=== PATIENT | male | born 1940 | race Caucasian/White ===

== ENCOUNTER → 2023-09-21 10:20 | Outpatient (REF) | payer OTHER, SELFPAY ==
[2023-09-21 17:19] LABS: % Basophils 0.9 % (0-2); % Eosinophils 2.6 % (0-6); % Immature Granulocytes 0.4 % (0-0.5); % Lymphocytes 15.7 % (20.5-51.1); % Monocytes 8.3 % (1.7-9.3); % Neutrophils 72.1 % (42.2-75.2); Absolute Basophils 0.1 10^3/uL (0-0.2); Absolute Eosinophils 0.2 10^3/uL (0-0.7); Absolute Lymphocytes 1.1 10^3/uL (1.2-3.4); Absolute Monocytes 0.6 10^3/uL (0.1-0.6); Absolute Neutrophils 5.1 10^3/uL (1.4-6.5); Hematocrit 52.2 % (39.0-52.0); Hemoglobin 16.3 g/dL (13.0-18.0); Mean Corp Hgb Conc. 31.2 g/dL (33.0-37.0); Mean Corpuscular Hgb 26.9 pg (27.0-31.0); Mean Corpuscular Volume 86.1 fL (80.0-94.0); Mean Platelet Volume 9.1 fL (7.4-10.4); Nucleated Red Blood Cells % 0 % (-); Platelet Count 215 10^3/uL (130-400); Red Blood Cell Count 6.06 10^6/uL (4.70-6.10); Red Cell Dist. Width 16.7 % (11.5-14.5)
[2023-09-21 17:29] LABS: ALT (SGPT) 57 U/L (0-50); AST (SGOT) 34 U/L (17-59); Albumin 4.5 g/dl (3.5-5.0); Alkaline Phosphatase 84 U/L (38-126); Blood Urea Nitrogen 23 mg/dl (9-20); Calcium 9.6 mg/dl (8.4-10.2); Carbon Dioxide 23 mmol/L (22-30); Chloride 103 mmol/L (98-107); Glucose 164 mg/dl (70-99); HDL Cholesterol 56 mg/dl; LDL Cholesterol, Calculated 74 mg/dl; Potassium 4.8 mmol/L (3.5-5.1); Sodium 135 mmol/L (135-145); Total Bilirubin 1.4 mg/dl (0.2-1.3); Total Cholesterol 159 mg/dl (50-199); Total Protein 7.7 g/dl (6.3-8.2); Triglyceride 145 mg/dl (10-149); Very Low Density Lipoprotein 29 mg/dl (0-30); eGFR > 60.00
[2023-09-21 19:51] LABS: PSA, Total - Screen 3.57 ng/ml (0.0-4.0); TSH 3.53 uIU/ml (0.47-4.68)
[2023-09-22 09:22] LABS: Glycohemoglobin (HgbA1c) 7.4 % (4.0-5.6)
== END ==
LOC: CLAB 10:20
PROVIDERS: ATTENDING PHYSICIAN Family Medicine
DX: Z00.00 Encounter for general adult medical examination without abnormal findings (principal); Z13.29 Encounter for screening for other suspected endocrine disorder; E29.1 Testicular hypofunction; Z13.0 Encounter for screening for diseases of the blood and blood-forming organs and certain disorders involving the immune mechanism; I25.10 Atherosclerotic heart disease of native coronary artery without angina pectoris; E11.59 Type 2 diabetes mellitus with other circulatory complications
CPT/HCPCS: 36415; 80053; 80061; 83036; 84403; 84443; 85025; G0103

== ENCOUNTER → 2024-03-15 10:01 | Outpatient (REF) | payer OTHER, SELFPAY ==
[2024-03-15 19:31] LABS: % Basophils 0.7 % (0-2); % Eosinophils 4.7 % (0-6); % Immature Granulocytes 0.4 % (0-0.5); % Lymphocytes 21.5 % (20.5-51.1); % Monocytes 9.7 % (1.7-9.3); Absolute Eosinophils 0.3 10^3/uL (0-0.7); Absolute Lymphocytes 1.2 10^3/uL (1.2-3.4); Absolute Monocytes 0.5 10^3/uL (0.1-0.6); Absolute Neutrophils 3.4 10^3/uL (1.4-6.5); Hematocrit 50.6 % (39.0-52.0); Hemoglobin 15.4 g/dL (13.0-18.0); Mean Corp Hgb Conc. 30.4 g/dL (33.0-37.0); Mean Corpuscular Hgb 26.7 pg (27.0-31.0); Mean Corpuscular Volume 87.7 fL (80.0-94.0); Mean Platelet Volume 9.4 fL (7.4-10.4); Nucleated Red Blood Cells % 0 % (-); Platelet Count 188 10^3/uL (130-400); Red Blood Cell Count 5.77 10^6/uL (4.70-6.10); Red Cell Dist. Width 15.6 % (11.5-14.5); White Blood Cell Count 5.4 10^3/uL (4.8-10.8)
[2024-03-15 19:36] LABS: ALT (SGPT) 45 U/L (0-50); AST (SGOT) 31 U/L (17-59); Albumin 4.3 g/dl (3.5-5.0); Alkaline Phosphatase 81 U/L (38-126); Blood Urea Nitrogen 27 mg/dl (9-20); Calcium 9.3 mg/dl (8.4-10.2); Carbon Dioxide 23 mmol/L (22-30); Chloride 101 mmol/L (98-107); Glucose 136 mg/dl (70-99); HDL Cholesterol 48 mg/dl; LDL Cholesterol, Calculated 67 mg/dl; Potassium 4.8 mmol/L (3.5-5.1); Sodium 137 mmol/L (135-145); Total Bilirubin 1.1 mg/dl (0.2-1.3); Total Cholesterol 140 mg/dl (50-199); Total Protein 7.1 g/dl (6.3-8.2); Triglyceride 129 mg/dl (10-149); Very Low Density Lipoprotein 25 mg/dl (0-30); eGFR > 60.00
[2024-03-16 10:56] LABS: Glycohemoglobin (HgbA1c) 7.3 % (4.0-5.6)
== END ==
LOC: CLAB 10:01
PROVIDERS: ATTENDING PHYSICIAN Family Medicine
DX: E11.69 Type 2 diabetes mellitus with other specified complication (principal); E29.1 Testicular hypofunction; E78.2 Mixed hyperlipidemia; I10 Essential (primary) hypertension
CPT/HCPCS: 36415; 80053; 80061; 83036; 84403; 85025

== ENCOUNTER → 2024-08-09 16:43 | Outpatient (REF) | payer OTHER, SELFPAY ==
[2024-08-09 18:06] LABS: ALT (SGPT) 41 U/L (0-50); AST (SGOT) 25 U/L (17-59); Albumin 4.2 g/dl (3.5-5.0); Alkaline Phosphatase 117 U/L (38-126); Blood Urea Nitrogen 25 mg/dl (9-20); Calcium 9.3 mg/dl (8.4-10.2); Carbon Dioxide 29 mmol/L (22-30); Chloride 97 mmol/L (98-107); Glucose 220 mg/dl (70-99); HDL Cholesterol 40 mg/dl; LDL Cholesterol, Calculated 47 mg/dl; Potassium 5.9 mmol/L (3.5-5.1); Sodium 133 mmol/L (135-145); Total Cholesterol 124 mg/dl (50-199); Total Protein 6.7 g/dl (6.3-8.2); Triglyceride 186 mg/dl (10-149); Very Low Density Lipoprotein 37 mg/dl (0-30); eGFR > 60.00
[2024-08-10 10:00] LABS: Glycohemoglobin (HgbA1c) 9.8 % (4.0-5.6)
== END ==
LOC: CLAB 16:43
PROVIDERS: ATTENDING PHYSICIAN Family Medicine
DX: E11.69 Type 2 diabetes mellitus with other specified complication (principal); E78.2 Mixed hyperlipidemia; E29.1 Testicular hypofunction
CPT/HCPCS: 80053; 80061; 83036; 84403

== ENCOUNTER → 2024-08-11 16:35 | Outpatient (REF) | payer OTHER, SELFPAY ==
[2024-08-11 17:27] LABS: Potassium 4.9 mmol/L (3.5-5.1)
== END ==
LOC: REG 16:35
PROVIDERS: ATTENDING PHYSICIAN Family Medicine
DX: E87.5 Hyperkalemia (principal)
CPT/HCPCS: 36415; 84132

== ENCOUNTER → 2024-11-17 10:58 | Outpatient (REF) | payer OTHER, SELFPAY ==
[2024-11-17 16:53] LABS: ALT (SGPT) 41 U/L (0-50); AST (SGOT) 27 U/L (17-59); Albumin 4.1 g/dl (3.5-5.0); Alkaline Phosphatase 77 U/L (38-126); Blood Urea Nitrogen 20 mg/dl (9-20); Calcium 9.2 mg/dl (8.4-10.2); Carbon Dioxide 22 mmol/L (22-30); Chloride 106 mmol/L (98-107); Glucose 185 mg/dl (70-99); Potassium 4.9 mmol/L (3.5-5.1); Sodium 138 mmol/L (135-145); Total Bilirubin 1.1 mg/dl (0.2-1.3); Total Protein 6.8 g/dl (6.3-8.2); eGFR > 60.00
[2024-11-17 17:24] LABS: PSA, Total - Screen 3.33 ng/ml (0.0-4.0)
[2024-11-18 08:46] LABS: Glycohemoglobin (HgbA1c) 9.6 % (4.0-5.6)
== END ==
LOC: CLAB 10:58
PROVIDERS: ATTENDING PHYSICIAN Family Medicine
DX: E11.65 Type 2 diabetes mellitus with hyperglycemia (principal); E29.1 Testicular hypofunction; N40.1 Benign prostatic hyperplasia with lower urinary tract symptoms; Z01.84 Encounter for antibody response examination
CPT/HCPCS: 36415; 80053; 83036; 86787; G0103

== ENCOUNTER → 2025-03-13 16:11 | Outpatient (REF) | payer OTHER, SELFPAY ==
[2025-03-13 17:42] LABS: ALT (SGPT) 51 U/L (0-50); AST (SGOT) 36 U/L (17-59); Albumin 4.3 g/dl (3.5-5.0); Alkaline Phosphatase 72 U/L (38-126); Blood Urea Nitrogen 17 mg/dl (9-20); Calcium 9.2 mg/dl (8.4-10.2); Carbon Dioxide 27 mmol/L (22-30); Chloride 106 mmol/L (98-107); Glucose 109 mg/dl (70-99); HDL Cholesterol 43 mg/dl; LDL Cholesterol, Calculated 38 mg/dl; Potassium 4.8 mmol/L (3.5-5.1); Sodium 142 mmol/L (135-145); Total Protein 7.1 g/dl (6.3-8.2); Very Low Density Lipoprotein 34 mg/dl (0-30); eGFR > 60.00
[2025-03-14 08:11] LABS: Glycohemoglobin (HgbA1c) 7.2 % (4.0-5.6)
== END ==
LOC: CLAB 16:11
PROVIDERS: ATTENDING PHYSICIAN Family Medicine
DX: E11.65 Type 2 diabetes mellitus with hyperglycemia (principal); E78.2 Mixed hyperlipidemia; E29.1 Testicular hypofunction
CPT/HCPCS: 80053; 80061; 83036; 84403

== ENCOUNTER 2025-04-12 21:36 | Inpatient (IN) | payer OTHER, SELFPAY ==
[2025-04-12] VITALS (11 sets, daily range): BP systolic 97–135; BP diastolic 49–117; BMI 33.5; BMI 34.2
[2025-04-12 17:35] LABS: Hematocrit 33.8 % (39.0-52.0); Hemoglobin 10.9 g/dL (13.0-18.0); Mean Corp Hgb Conc. 32.2 g/dL (33.0-37.0); Mean Corpuscular Volume 83.3 fL (80.0-94.0); Nucleated Red Blood Cells % 0 % (-); Red Cell Dist. Width 14.7 % (11.5-14.5)
[2025-04-12 17:39] LABS: ALT (SGPT) 26 U/L (0-50); AST (SGOT) 19 U/L (17-59); Albumin 4.1 g/dl (3.5-5.0); Alkaline Phosphatase 70 U/L (38-126); Blood Urea Nitrogen 56 mg/dl (9-20); Calcium 9.4 mg/dl (8.4-10.2); Carbon Dioxide 18 mmol/L (22-30); Chloride 95 mmol/L (98-107); Estimated Creatinine Clearance 22 ml/min; Glucose 238 mg/dl (70-99); Potassium 4.7 mmol/L (3.5-5.1); Sodium 127 mmol/L (135-145); Total Protein 7.2 g/dl (6.3-8.2); eGFR 18.27
[2025-04-12 17:43] LABS: Troponin I 0.023 ng/ml
[2025-04-12] MEDS: MORPHINE SULFATE 4 MG IV ×2 (17:43→21:16)
[2025-04-12 17:51] LABS: Magnesium 2.3 mg/dl (1.6-2.3)
--- NOTE | 2025-04-12 18:13 | ED.GENMED ---
History of Present Illness
<Leanne Melendez DO - Last Filed: 04/12/25 21:04>
General
Chief Complaint: Weakness
Time Seen by Provider: 04/12/25 17:09
<Melani Lanier PA-C - Last Filed: 04/13/25 01:02>
General
Source: patient
History of Present Illness
History of Present Illness:
see MDM
Past History
<Leanne Melendez DO - Last Filed: 04/12/25 21:04>
Past History
ED Past Medical History: CAD, COPD, HTN, Hypercholesterolemia and NIDDM; Negative Arrthythmia
ED Past Surgical History: Orthopedic
Social History
Tobacco: Non-smoker
Alcohol: None
Drug: None
Personal:
Living: with family
Employment: Employed
Family History
Family History: Hypertension
Phy Exam
<Melani Lanier PA-C - Last Filed: 04/13/25 01:02>
Physical Exam
Physical Exam:
GENERAL: Alert ,, shaky, dry, anxious, unkept, malordorous
EYE: pupils equal and reactive
NECK: Supple
ENT: o/p clr, mmm. Very dry mouth
CARDIAC: Tachycardic
lung: Clear breath sounds bilaterally, no acute respiratory distress, no wheezes/rales/rhonchi
ABDOMEN: Soft, slight lower abd tenderness, no r/g, no cvat, normal bowel sounds
depends soaked urine
NEUROLOGICAL: Alert and oriented, no focal neuro deficits
SKIN: Warm and dry, skin intact.
MUSCULOSKELETAL: moderate swelling L thigh; no hematoma; very tender mid thigh
distal LLE slightly swollen, a little cool, pulse intact sensatino intact
can wiggle toes
very limited painful ROM of the L hip and L knee;
PSYCH: Normal and appropriate interaction.
Course
<Leanne Al, DO - Last Filed: 04/12/25 21:04>
Orders/Labs/Results
Orders:
Orders
04/12/25 17:08
Electrocardiogram (*1) Urgent
Reason for Study: Chest Pain
Cardiac Monitoring- Treatment ONCE
EKG- Treatment ONCE
04/12/25 17:11
Complete Blood Count/With Diff Urgent
Comprehensive Metabolic Panel Urgent
Creatine Phosphokinase Urgent
Comment: ADD ON
Magnesium Urgent
Comment: ADD ON
Troponin I Urgent
04/12/25 17:30
C DIFF [C difficile Antigen & Toxins] Urgent
GISSELLE Source: Feces/Stool
Specimen Description:
Stool Culture Urgent
GISSELLE Source: Feces/Stool
Specimen Description:
Morphine Sulfate 4 mg IV NOW STA
Femur, Left 2 View [CR Femur - Left Min 2 Vw] Urgent
Comment:
Reason For Exam: L leg swelling , pain, fall
04/12/25 17:31
CR Chest - 2 Views Urgent
Comment:
Reason For Exam: tachypneic
04/12/25 17:33
0.9% Sodium Chloride 1000 ml [Nss] 1,000 ml IV BOLUS
04/12/25 17:35
Add On- LAB Urgent
Tests Added?: magnesium
04/12/25 17:50
Bladder Scan- Treatment ONCE
CR Pelvis - 1 Or 2 Views Urgent
Reason For Exam: left hip pain, fall
04/12/25 17:59
Lactic Acid Urgent
Blood Culture Q30M
GISSELLE Source: Blood/Venous
Specimen Description:
04/12/25 18:05
Add On- LAB Urgent
Tests Added?: cpk
04/12/25 18:16
Blood Culture Q30M
GISSELLE Source: Blood/Venous
Specimen Description:
04/12/25 18:57
0.9% Sodium Chloride 1000 ml [Nss] 1,500 ml IV NOW STA
Piperacillin/Tazo 3.375 Gram [Zosyn] 3.375 gram in 50 ml IV NOW
04/12/25 18:58
CT Abd/pel Without Iv Or Oral Urgent
Comment:
Reason For Exam: diarrhea, ARF, fall, weak
Urinalysis Reflex To Culture Urgent
04/12/25 20:38
Knee Immobilizer Left-Treatmen ONCE
04/12/25 21:10
Morphine Sulfate 4 mg IV NOW STA
04/12/25 21:12
Admit/Transfer Patient As Directed
Co-Sign Provider:
Level of Care: Inpatient admission
Assign to:: IMU- Intermediate Care
Physician / Group: [facility]
Diagnosis: Femur Fracture; CHUY; Ureteral Stones
Reason for Hospitalization: IVFs, IV abx
Expected length of stay greater than two midnights?: Yes
ELOS- Estimated Length of Stay in days: 3
I certify the patient meets the requirements for IP care: Yes
PRN Pain Medication Management As Directed
May give lesser potent ordered pain med per pt: Yes
preference::
Protocol:: Medication orders for pain may be administered in a
manner that supports deferring to patient preference
when the pt is:
- Requesting an ordered lesser potent pain medication.
Least to most potent pain medications are defined
as: acetaminophen < NSAID < tramadol < opioids
(morphine, oxycodone, hydromorphone).
- Requesting a lesser dose of the same medication IF
ORDERED.
- Requesting a less intrusive route of administration
if both routes are prescribed by the provider (PO <
IV).
04/12/25 21:15
Code Status As Directed
Resuscitation Status: Full Code
04/12/25 21:21
Osmolality, Random Urine Routine
Urine Sodium Routine
04/12/25 21:32
Dexamethasone Sod Phosphate [Decadron] 20 mg .ROUTE .STK-MED ONE
Lidocaine HCl/Pf [Xylocaine-Mpf 1% Vial] 50 mg .ROUTE .STK-MED ONE
Ondansetron Injectable [Zofran] 4 mg .ROUTE .STK-MED ONE
Phenylephrine HCl/0.9% NaCl [Ashok-Synephrine] 1,000 mcg .ROUTE .STK-MED ONE
Propofol [Diprivan] 20 ml .ROUTE .STK-MED
Rocuronium [place] [Rocuronium] 50 mg .ROUTE .STK-MED ONE
ePHEDrine SULFATE [Emerphed] 50 mg .ROUTE .STK-MED ONE
04/12/25 21:33
Fentanyl Citrate/Pf [Sublimaze] 100 mcg .ROUTE .STK-MED ONE
04/12/25 22:42
0.9% Sodium Chloride 1000 ml [Nss] 1,000 ml IV 125 mls/hr
Acetaminophen [Tylenol] 1,000 mg PO TID
Dextrose 50%-Water [Dextrose 50% Syringe] 12.5 grams IV [id number] PRN
Glucagon [GlucaGen] 1 mg IM PRN PRN
Montelukast Sodium [Singulair] 10 mg PO HS
Morphine Sulfate 4 mg IV Q4HPRN PRN
Oxycodone [Roxicodone] 2.5 mg PO Q4HPRN PRN
Oxycodone [Roxicodone] 5 mg PO Q4HPRN PRN
04/12/25 22:42
ORTHOPEDIC CONSULT Routine
Consulting Provider: Von Parsons
Was physician already notified: Yes
UROLOGY CONSULT Routine
Consulting Provider: Reji Lowe
Was physician already notified: Yes
Activity As Directed
Activity Level: Bedrest
Bedside Glucose Monitoring As Directed
Frequency: AC&HS
Additional Instructions:: Change to q6h if pt on TPN, tube feeding or not eating
I&O [Intake/ Output] As Directed
Frequency: q12h
Immobilizer [Braces/Immobilizers] As Directed
Type of Brace/Immobilizer: Knee immobilizer
Location for Brace/Immobilizer: Left
Pneumatic Compression Sleeves As Directed
Type: Knee high
Vital Signs As Directed
Frequency: Per unit guidelines
Weight As Directed
Frequency: Daily
Weight Bearing Status As Directed
Weight bearing to: Left lower extremity
Type: Non Wt. bearing
Cpap [RESP] Routine
Patient to use own unit?: No
Set Pressure (cm H2O): 12
Instructions: Titrate to comfort; Patient does not know home settings
DX Deep Vein Thrombosis Video Routine
04/12/25 23:48
BMP [Basic Metabolic Panel] Routine
Lactic Acid Q4H
Comment: repeat q4 hours x 4 or until less than 2 mmol/L
04/13/25 02:00
Lactic Acid Q4H
Comment: repeat q4 hours x 4 or until less than 2 mmol/L
Piperacillin/Tazo 2.25 Gram [Zosyn] 2.25 grams in 50 ml IV Q6H
04/13/25 Breakfast
2000 calorie (17 carb) Diabetic
At Your Request: Limited Participation
Basic Metabolic Panel IN AM
Complete Blood Count/No Diff IN AM
Glycohemoglobin (HgbA1c) IN AM
Lactic Acid Q4H
Comment: repeat q4 hours x 4 or until less than 2 mmol/L
04/13/25 07:30
Insulin Aspart Corrective Mod [Novolog Flexpen-Moderate Resistance] See Protocol SC AC
04/13/25 08:00
Aspirin Low Dose EC [Aspir Low (Enteric Coated)] 81 mg PO DAILY
Metoprolol [Lopressor] 50 mg PO BID
Sitagliptin Phosphate [Januvia] 50 mg PO DAILY
Tamsulosin [Flomax] 0.4 mg PO DAILY
04/13/25 09:00
CR Knee - Left 1 Or 2 Views Urgent
Reason For Exam: requested by ortho
04/13/25 18:00
Atorvastatin [Lipitor] 80 mg PO QPM
Abnormal Lab Results
04/12/25 04/12/25
17:11 17:59
WBC 11.6 H 10^3/uL
(4.8-10.8)
RBC 4.06 L 10^6/uL
(4.70-6.10)
Hgb 10.9 L g/dL
(13.0-18.0)
Hct 33.8 L %
(39.0-52.0)
MCH 26.8 L pg
(27.0-31.0)
MCHC 32.2 L g/dL
(33.0-37.0)
RDW 14.7 H %
(11.5-14.5)
Absolute Neuts (auto) 9.4 H 10^3/uL
(1.4-6.5)
Absolute Lymphs (auto) 0.9 L 10^3/uL
(1.2-3.4)
Absolute Monos (auto) 1.3 H 10^3/uL
(0.1-0.6)
Neutrophils % 80.8 H %
(42.2-75.2)
Lymphocytes % 7.3 L %
(20.5-51.1)
Monocytes % 11.0 H %
(1.7-9.3)
Sodium 127 L mmol/L
(135-145)
Chloride 95 L mmol/L
(98-107)
Carbon Dioxide 18 L mmol/L
(22-30)
BUN 56 H mg/dl
(9-20)
Creatinine 3.2 H mg/dL
(0.7-1.3)
Glucose 238 H mg/dl
(70-99)
Lactic Acid 3.1 H mmol/L
(0.7-2.0)
Creatine Kinase 259 H U/L
(55-170)
04/12/25 17:11
04/12/25 17:11
Vital Signs
Initial and Last Documented VS:
Initial Vital Signs
Resp BP
19 125/107
04/12/25 16:51 04/12/25 16:51
Last Documented Vital Signs
Temp Pulse Resp BP Pulse Ox
37.0 C 108 16 135/81 100
04/12/25 23:54 04/12/25 23:20 04/12/25 23:20 04/12/25 23:20 04/12/25 23:20
<Melani Lanier PA-C - Last Filed: 04/13/25 01:02>
Orders/Labs/Results
Orders:
Orders
04/12/25 17:08
Electrocardiogram (*1) Urgent
Reason for Study: Chest Pain
Cardiac Monitoring- Treatment ONCE
EKG- Treatment ONCE
04/12/25 17:11
Complete Blood Count/With Diff Urgent
Comprehensive Metabolic Panel Urgent
Creatine Phosphokinase Urgent
Comment: ADD ON
Magnesium Urgent
Comment: ADD ON
Troponin I Urgent
04/12/25 17:30
C DIFF [C difficile Antigen & Toxins] Urgent
GISSELLE Source: Feces/Stool
Specimen Description:
Stool Culture Urgent
GISSELLE Source: Feces/Stool
Specimen Description:
Morphine Sulfate 4 mg IV NOW STA
Femur, Left 2 View [CR Femur - Left Min 2 Vw] Urgent
Comment:
Reason For Exam: L leg swelling , pain, fall
04/12/25 17:31
CR Chest - 2 Views Urgent
Comment:
Reason For Exam: tachypneic
04/12/25 17:33
0.9% Sodium Chloride 1000 ml [Nss] 1,000 ml IV BOLUS
04/12/25 17:35
Add On- LAB Urgent
Tests Added?: magnesium
04/12/25 17:50
Bladder Scan- Treatment ONCE
CR Pelvis - 1 Or 2 Views Urgent
Reason For Exam: left hip pain, fall
04/12/25 17:59
Lactic Acid Urgent
Blood Culture Q30M
GISSELLE Source: Blood/Venous
Specimen Description:
04/12/25 18:05
Add On- LAB Urgent
Tests Added?: cpk
04/12/25 18:16
Blood Culture Q30M
GISSELLE Source: Blood/Venous
Specimen Description:
04/12/25 18:57
0.9% Sodium Chloride 1000 ml [Nss] 1,500 ml IV NOW STA
Piperacillin/Tazo 3.375 Gram [Zosyn] 3.375 gram in 50 ml IV NOW
04/12/25 18:58
CT Abd/pel Without Iv Or Oral Urgent
Comment:
Reason For Exam: diarrhea, ARF, fall, weak
Urinalysis Reflex To Culture Urgent
04/12/25 20:38
Knee Immobilizer Left-Treatmen ONCE
04/12/25 21:10
Morphine Sulfate 4 mg IV NOW STA
04/12/25 21:12
Admit/Transfer Patient As Directed
Co-Sign Provider:
Level of Care: Inpatient admission
Assign to:: IMU- Intermediate Care
Physician / Group: [facility]
Diagnosis: Femur Fracture; CHUY; Ureteral Stones
Reason for Hospitalization: IVFs, IV abx
Expected length of stay greater than two midnights?: Yes
ELOS- Estimated Length of Stay in days: 3
I certify the patient meets the requirements for IP care: Yes
PRN Pain Medication Management As Directed
May give lesser potent ordered pain med per pt: Yes
preference::
Protocol:: Medication orders for pain may be administered in a
manner that supports deferring to patient preference
when the pt is:
- Requesting an ordered lesser potent pain medication.
Least to most potent pain medications are defined
as: acetaminophen < NSAID < tramadol < opioids
(morphine, oxycodone, hydromorphone).
- Requesting a lesser dose of the same medication IF
ORDERED.
- Requesting a less intrusive route of administration
if both routes are prescribed by the provider (PO <
IV).
04/12/25 21:15
Code Status As Directed
Resuscitation Status: Full Code
04/12/25 21:21
Osmolality, Random Urine Routine
Urine Sodium Routine
04/12/25 21:32
Dexamethasone Sod Phosphate [Decadron] 20 mg .ROUTE .STK-MED ONE
Lidocaine HCl/Pf [Xylocaine-Mpf 1% Vial] 50 mg .ROUTE .STK-MED ONE
Ondansetron Injectable [Zofran] 4 mg .ROUTE .STK-MED ONE
Phenylephrine HCl/0.9% NaCl [Ashok-Synephrine] 1,000 mcg .ROUTE .STK-MED ONE
Propofol [Diprivan] 20 ml .ROUTE .STK-MED
Rocuronium [place] [Rocuronium] 50 mg .ROUTE .STK-MED ONE
ePHEDrine SULFATE [Emerphed] 50 mg .ROUTE .STK-MED ONE
04/12/25 21:33
Fentanyl Citrate/Pf [Sublimaze] 100 mcg .ROUTE .STK-MED ONE
04/12/25 22:42
0.9% Sodium Chloride 1000 ml [Nss] 1,000 ml IV 125 mls/hr
Acetaminophen [Tylenol] 1,000 mg PO TID
Dextrose 50%-Water [Dextrose 50% Syringe] 12.5 grams IV [id number] PRN
Glucagon [GlucaGen] 1 mg IM PRN PRN
Montelukast Sodium [Singulair] 10 mg PO HS
Morphine Sulfate 4 mg IV Q4HPRN PRN
Oxycodone [Roxicodone] 2.5 mg PO Q4HPRN PRN
Oxycodone [Roxicodone] 5 mg PO Q4HPRN PRN
04/12/25 22:42
ORTHOPEDIC CONSULT Routine
Consulting Provider: Von Parsons
Was physician already notified: Yes
UROLOGY CONSULT Routine
Consulting Provider: Reji Lowe
Was physician already notified: Yes
Activity As Directed
Activity Level: Bedrest
Bedside Glucose Monitoring As Directed
Frequency: AC&HS
Additional Instructions:: Change to q6h if pt on TPN, tube feeding or not eating
I&O [Intake/ Output] As Directed
Frequency: q12h
Immobilizer [Braces/Immobilizers] As Directed
Type of Brace/Immobilizer: Knee immobilizer
Location for Brace/Immobilizer: Left
Pneumatic Compression Sleeves As Directed
Type: Knee high
Vital Signs As Directed
Frequency: Per unit guidelines
Weight As Directed
Frequency: Daily
Weight Bearing Status As Directed
Weight bearing to: Left lower extremity
Type: Non Wt. bearing
Cpap [RESP] Routine
Patient to use own unit?: No
Set Pressure (cm H2O): 12
Instructions: Titrate to comfort; Patient does not know home settings
DX Deep Vein Thrombosis Video Routine
04/12/25 23:48
BMP [Basic Metabolic Panel] Routine
Lactic Acid Q4H
Comment: repeat q4 hours x 4 or until less than 2 mmol/L
04/13/25 02:00
Lactic Acid Q4H
Comment: repeat q4 hours x 4 or until less than 2 mmol/L
Piperacillin/Tazo 2.25 Gram [Zosyn] 2.25 grams in 50 ml IV Q6H
04/13/25 Breakfast
2000 calorie (17 carb) Diabetic
At Your Request: Limited Participation
Basic Metabolic Panel IN AM
Complete Blood Count/No Diff IN AM
Glycohemoglobin (HgbA1c) IN AM
Lactic Acid Q4H
Comment: repeat q4 hours x 4 or until less than 2 mmol/L
04/13/25 07:30
Insulin Aspart Corrective Mod [Novolog Flexpen-Moderate Resistance] See Protocol SC AC
04/13/25 08:00
Aspirin Low Dose EC [Aspir Low (Enteric Coated)] 81 mg PO DAILY
Metoprolol [Lopressor] 50 mg PO BID
Sitagliptin Phosphate [Januvia] 50 mg PO DAILY
Tamsulosin [Flomax] 0.4 mg PO DAILY
04/13/25 09:00
CR Knee - Left 1 Or 2 Views Urgent
Reason For Exam: requested by ortho
04/13/25 18:00
Atorvastatin [Lipitor] 80 mg PO QPM
Abnormal Lab Results
04/12/25 04/12/25
17:11 17:59
WBC 11.6 H 10^3/uL
(4.8-10.8)
RBC 4.06 L 10^6/uL
(4.70-6.10)
Hgb 10.9 L g/dL
(13.0-18.0)
Hct 33.8 L %
(39.0-52.0)
MCH 26.8 L pg
(27.0-31.0)
MCHC 32.2 L g/dL
(33.0-37.0)
RDW 14.7 H %
(11.5-14.5)
Absolute Neuts (auto) 9.4 H 10^3/uL
(1.4-6.5)
Absolute Lymphs (auto) 0.9 L 10^3/uL
(1.2-3.4)
Absolute Monos (auto) 1.3 H 10^3/uL
(0.1-0.6)
Neutrophils % 80.8 H %
(42.2-75.2)
Lymphocytes % 7.3 L %
(20.5-51.1)
Monocytes % 11.0 H %
(1.7-9.3)
Sodium 127 L mmol/L
(135-145)
Chloride 95 L mmol/L
(98-107)
Carbon Dioxide 18 L mmol/L
(22-30)
BUN 56 H mg/dl
(9-20)
Creatinine 3.2 H mg/dL
(0.7-1.3)
Glucose 238 H mg/dl
(70-99)
Lactic Acid 3.1 H mmol/L
(0.7-2.0)
Creatine Kinase 259 H U/L
(55-170)
04/12/25 17:11
04/12/25 17:11
Vital Signs
Initial and Last Documented VS:
Initial Vital Signs
Resp BP
19 125/107
04/12/25 16:51 04/12/25 16:51
Last Documented Vital Signs
Temp Pulse Resp BP Pulse Ox
37.0 C 108 16 135/81 100
04/12/25 23:54 04/12/25 23:20 04/12/25 23:20 04/12/25 23:20 04/12/25 23:20
<Melani Lanier PA-C - Last Filed: 04/13/25 01:02>
MDM/Problems Addressed
Differential Diagnosis Includes:
see Mdm
MDM/Problems Addressed:
Note:
CHIEF COMPLAINT(S)
- Fall due to weakness
- Diarrhea
HISTORY OF PRESENT ILLNESS
The patient is an 85-year-old male who presented after a fall in the bathroom due to weakness. He mentioned that he usually uses a power chair (does not ambulate at all but can stand to pivot) and attempted to use the bathroom independently, which
led to the fall. He noted that the bathroom space is small and confining. After the incident, he waited approximately 20 minutes before calling for assistance to avoid disturbing his spouse, eventually contacting emergency services. On Thursday,
emergency services were called, but the patient declined transport to the hospital, as they deemed it unnecessary at the time. he didn't think he was injured
Since the fall, the patient has experienced significant diarrhea, estimating occurrences more than ten times. He attempted self-medication with Loperamide (Imodium) and another unspecified medication. He reported some relief but did not wish to
continue excessive medication use. Additionally, he mentioned abdominal discomfort and a feeling of nausea but denied vomiting.
The patient expressed significant left leg pain, particularly around the knee and thigh, where previous orthopedic interventions (knee replacement and rods) were placed. The leg appeared swollen, raising concerns about mobility and potential injury.
He also reported an inability to stand, which was unusual for him, as he typically manages transferring between bed and wheelchair. He is incontinent of urine, relying on adult protective garments, and unable to change them without assistance. The
patient denied any prior history of diverticulitis or current use of anticoagulant medications.
A family member confirmed that the patient�s mobility had been further reduced since the fall, leading to the present examination.
ADDITIONAL HISTORY OBTAINED FROM SOURCES OTHER THAN THE PATIENT
According to a family member, the patient continued to experience pain from fall despite initially declining hospital evaluation. They have noted a decrease in his usual ability to stand and perform daily transfers.
SOCIAL DETERMINANTS AFFECTING HEALTH
The patient relies heavily on the use of a power wheelchair and the assistance of family members for mobility and daily activities.
PHYSICAL EXAM
- Nursing notes reviewed and vital signs reviewed.
-GENERAL: Alert , in no apparent distress
EYE: pupils equal and reactive
NECK: Supple
ENT: o/p clr, mmm.
CARDIAC: Regular rate and rhythm .
LUNGS: Clear breath sounds bilaterally, no acute respiratory distress, no wheezes/rales/rhonchi
ABDOMEN: Soft, without focal tenderness, no r/g, no cvat, normal bowel sounds
NEUROLOGICAL: Alert and oriented, no focal neuro deficits
SKIN: Warm and dry, skin intact.
MUSCULOSKELETAL: No edema, well perfused. neg wesley's sign
PSYCH: Normal and appropriate interaction.
PLAN
- Obtain imaging studies of the left leg to assess for potential fractures or other injuries.
- Consider pain management with a suitable analgesic that the patient has tolerated well in the past, such as hydrocodone.
- Monitor and manage diarrhea symptoms and evaluate for potential causes.
DIFFERENTIAL DIAGNOSIS
The Differential Diagnosis includes, in no particular order and is not limited to:
1. Fracture or hardware failure in the left leg
2. Soft tissue injury or hematoma in the left leg
3. Colitis or gastrointestinal infection
4. Medication side effects
5. Dehydration secondary to diarrhea
6. Orthostatic hypotension leading to fall
7. Musculoskeletal strain from fall
8. Neuropathy or musculoskeletal weakness
9. Mechanical fall due to limited mobility
10. Urinary tract infection contributing to symptoms
CARE-UPDATE
04/12/25 - 19:47
The patient is experiencing symptoms consistent with acute kidney injury, likely due to dehydration from volume depletion. This is exacerbated by diarrhea and decreased fluid intake. The plan includes fluid resuscitation in the hospital to address
the dehydration and support kidney function. The patient has a femur fracture with involvement of a previously placed katharina, suggesting the possibility of a fall resulting in fracture. Imaging studies are planned to assess abdominal issues, and urine
tests are needed to rule out infections. Antibiotics and fluids have been ordered as part of the treatment regimen.
CARE-UPDATE
04/12/25 - 20:12
Patient exhibits elevated kidney function, likely due to dehydration from diarrhea, with creatinine levels at 3. Initiated hydration therapy to improve renal function. Imaging revealed a mid-shaft femur fracture; existing hardware is stable, but
complex surgery required, I spoke to Dr. Martin on-call for orthopedics who was concerned about the complexity of this case and thought that he should be transferred to [facility].
Non-emergency status for surgery; prioritizing kidney stabilization. Transfer logistics involve ambulance transportation; while waiting for bed availability at [facility], the patient may be admitted locally. Continuous coordination with patient�s family
for updates on transfer status
I did reach out to [facility] transfer center and spoke with both the trauma attending and the orthopedic attending
Both of which agree that the patient should be transferred there for management of his femur fracture but agreed that it was not urgent and since there is only 1 surgeon that would do that type of surgical fixation that it would be best that we
stabilize him medically before transferring him for his femur fracture. The surgeon would not be there to operate on the patient until next week anyway.
Patient's blood pressure is a little soft, CT report returned to show that he has bilateral nonobstructing distal ureteral stones, with the CHUY the soft blood pressure I did speak with the urologist on-call who will take the patient to the operating
room. Patient is already receiving sepsis fluids and Zosyn empirically
<Leanne Melendez DO - Last Filed: 04/12/25 21:04>
*Pulse Oximetry
SaO2: 98
Oxygen Mode of Delivery: Room air
*Critical Care Note
Total Time (30-74mins, 75-104mins- exclusive of procedures): 52
comment:
The high probability of a clinically significant, sudden or life threatening deterioration of the trauma/orthopedic injury, sepsis, acute renal failure required my full and direct attention, intervention and personal management. The aggregate
critical care time was [] minutes. This time is in addition to time spent performing reported procedures but includes the following:
[x] Data Review and interpretation
[x] Patient assessment and monitoring of vital signs
[x] Documentation
[x] Medication orders and management
<Melani Lanier PA-C - Last Filed: 04/13/25 01:02>
*Pulse Oximetry
Patient hypoxic: no (98)
ED Attending Note
<Leanne Melendez DO - Last Filed: 04/12/25 21:04>
ED Attending Note
Patient seen and examined by attending physician: Yes
I performed the substantive portion of visit, reviewed & personally made and approve the management plan that is documented in note by myself or SADIE.: Yes
I performed a history and physical exam of patient and discussed management with resident, I reviewed resident's note and agree with documented findings and plan of care.: Yes
ED Attending Note:
85-year-old male with history of CAD, history of bronchitis, diabetes presenting to the emergency department for left leg pain. Patient reports that he fell 2 days ago. He did have to call the ambulance for lift assist. Patient does not ambulate
at baseline, however is able to transfer to the wheelchair to the bathroom. Reports 2 days ago, felt very weak, his legs gave out and he fell with his left leg tucked under his right leg. Initially when the medics arrived to help him get into bed,
felt okay. He did not seek medical attention. However, since the initial fall, has been unable to move his left lower extremity with pain upon movement. Notes pain to the hip and proximal knee region. Denies numbness or tingling. Does report
history of surgery to the left lower extremity in the past, several years ago at a hospital in [place]. Regarding his generalized weakness, notes that he has been having diarrhea, weakness, generalized abdominal discomfort. No report of any
fever. Vital signs on arrival are abnormal with tachycardia.
On exam patient is in no acute distress. No significant signs of external trauma. No signs of head trauma, no midline cervical neck tenderness. Unremarkable cardiac and pulmonary exam with the exception of sinus tachycardia. Regarding abdominal
exam, generalized nonfocal tenderness, mild distention. On examination of the lower extremities, bilateral extremities are cool to touch with no temperature discrimination between extremities. Sensation intact. Left lower extremity is shortened
and externally rotated. However, compartments are generally soft to palpation. No ecchymosis. From a trauma perspective, concern for hip fracture or femur fracture. No present neurovascular compromise. From a weakness standpoint, concern for
acute dehydration, with GI losses from diarrhea and limited p.o. intake in the past 2 days given his mobility issues. Plan for IV fluids, laboratory analysis, CT imaging of the abdomen and pelvis. Also plan for x-ray imaging of the left lower
extremity. Will also send creatinine kinase for concern of rhabdo.
20:20 - Labs remarkable for acute kidney injury as well as leukocytosis with elevated lactic acid, concern for sepsis versus acute dehydration. Pending CT abdominal imaging, however meeting sepsis criteria, so will start broad-spectrum antibiotics
and continue IV fluids. From a trauma perspective, complicated fracture of the left femur through patient's hardware from prior surgery. In discussion with orthopedics, recommending transfer to tertiary center. Will discuss with Jesus transfer
21:00 -in discussion with Jesus, recommend medical stabilization and then nonemergent operative management. CT of the abdomen pelvis shows bilateral renal stones. Urology made aware, plan for operative management in the setting of possible infected
stone. Plan for admission
-
Portions of this chart may have been created with voice recognition software.� Occasional wrong word or��sound alike� substitutions may have occurred due to the inherent limitations of voice recognition software.
Discharge Plan
Departure
Patient Disposition: Admit
Date of Disposition: 04/12/25
Time of Disposition: 20:40
Admit to: ICU
Presentation/result/management discussed w/ accepting MD/DO: Hospitalist
Condition: Fair
Covid-19: Not Applicable
Discharge Problem:
Acute renal failure (ARF), Sepsis, Femur fracture
Interventions
Interventions:
*Risk Screen - Suicide Last Done: 04/13/25 00:32
*General Assessment Last Done: 04/12/25 17:04
*Neglect/Abuse Screening Last Done: 04/12/25 17:04
*ED- Fall Risk Assessment Last Done: 04/12/25 17:06
*ED Influenza Vaccine History Last Done: 04/12/25 17:06
*Nursing Disposition Last Done: 04/12/25 22:01
ED-Skin Assessment Last Done: 04/12/25 18:30
ED- Pulmonary Assessment Last Done: 04/12/25 18:30
ED- Neurological Assessment Last Done: 04/12/25 18:30
ED-Musculoskeletal Assessment Last Done: 04/12/25 18:30
ED- Cardiac Assessment Last Done: 04/12/25 18:30
Discharge Date and Time
Discharge Date/Time: 04/12/25 22:01
[2025-04-12] MEDS: NSS 1000 IV ×2 (18:17→23:58)
--- NOTE | 2025-04-12 18:20 | EDRN ---
Pt was incontinent of large amount of urine and diarrhea and states had been sitting in it since Thursday. This RN and Dami RN w/ [facility] ED PCT cleaned pt of feces and urine, diaper saturated w/ feces and urine. All diarrhea.
[2025-04-12] MEDS: NSS 1500 ML IV (19:49)
[2025-04-12] MEDS: ZOSYN 50 IV (19:49)
--- NOTE | 2025-04-12 21:18 | HPS.HSE ---
Addendum entered and electronically signed by Miguel Wick DO 04/12/25 22:53:
Patient seen and examined independently. Agree with findings and plan as set forth by Vera Paredes PA-C.
Patient is an 85y M with PMH significant for ASCVD, hypertension and DM-II who presents to ED complaining of LLE pain after fall at home 2 days ago. Patient states that he is wheelchair bound at baseline - transferring from chair to bed, etc
independently. Two days ago he fell during transfer and his LLE twisted beneath him. He was helped back up and did not seek further medical attention at that time. He has noted progressive pain and decreased mobility since that time.
In addition to his leg pain, patient has noted loose stools, poor appetite, generalized abdominal discomfort and nausea without vomiting.
He denies any urinary complaints, fevers / chills, chest pain or dyspnea.
Ass:
UTI / Cystitis
Sepsis secondary to the above
Bilateral Distal Ureteral Stones without Obstruction
Diarrhea / Gastroenteritis
CHUY
Hyponatremia
Periprosthetic Left Femur Fracture
ASCVD
Benign Hypertension
DM-II
COPD / MEHDI
Chronic Ambulatory Dysfunction
Obesity due to excess calories
Plan:
Complex presentation with multiple active issues.
Admit for further evaluation and treatment.
Patient taken to OR this evening by urology for bilateral distal ureteral stones.
Stents placed / Mcgee placed. Evidence of bladder inflammation / cystitis on exam.
UTI / cystitis and evidence of organ dysfunction in the form of CHYU, lactic acidosis.
Continue IV abx renally dosed pending culture data.
IVF support and follow for improvement in serum lactate, SCr, etc.
Stool studies / cultures if further diarrhea. Patient did take antidiarrheal medications at home.
Follow temp curve and monitor for any new / worsening symptoms.
Left femur fracture will require specialty care / intervention.
ED reviewed with ortho at [facility] who advised that transfer be initiated after patient is otherwise medically stabilized.
Maintain LLE immobilizer for now. Local Ortho aware - though no plans for surgical intervention at this facility.
Call [facility] transfer center when acute medical issues improved / patient appropriate for transfer.
Hold most usual outpatient medications acutely.
Continue ASA uninterrupted given prior h/o coronary stents.
Follow glucose and cover with SSI. Update A1C.
Original Note:
Family Physician
-
Family Physician: Cindy Collier MD
Chief Complaint
-
Fall
History of Present Illness
Patient is an 85 y/o male past medical history of coronary artery disease, diabetes mellitus, hypertension, hyperlipidemia, COPD, Obesity and MEHDI who presents with left leg pain. At baseline patient transfers from wheelchair to bed / toilet.
Patient reports on Thursday morning he fells and called EMS to get him off the floor. Patient report left leg pain with movement since the fall. Patient also reports very poor appetite for past several days, and notes he diarrhea which began two
days ago after his fall. He reports taking Imodium and Kaopectate with improvement in the diarrhea. He reports some nausea without vomiting. He reports mild generalized abdominal discomfort. He denies recent travel, usual food intake, sick
contacts or recent antibiotics. He denies fevers, sweats or chills.
Medical History
Past Medical History
Past Medical History: Reports Other
Additional Past Medical History:
Coronary Artery Disease s/p Stent
Diabetes Mellitus, Type II
Essential Hypertension
Hyperlipidemia
COPD
Obstructive Sleep Apnea
Past Surgical History: Reports Other
Additional Past Surgical History:
Left Total Knee Replacement
Left Hip Surgery
Left Wrist Surgery
Left Rotator Cuff
Social History
Tobacco: Non-smoker
Alcohol: None
Personal:
Living: With Family
Family History
Family History: Not pertinent
Allergies / Home Medications
Allergies reflects when Allergies were last updated in [employer].
Home Medications with original date entered in [employer]
Allergy/Medication List:
Allergies
Allergy/AdvReac Type Severity Reaction Status Date / Time
No Known Allergies Allergy Verified 04/12/25 16:55
Home Medications
tadalafil 5 mg tablet (Cialis) 5 mg PO DAILY ##0 07/26/14
atorvastatin 80 mg tablet 80 mg PO QPM #30 tabs 07/27/14
cetirizine 10 mg tablet 10 mg PO DAILY 04/11/19
montelukast 10 mg tablet 10 mg PO HS 04/11/19
sitagliptin phosphate 100 mg tablet (Januvia) 100 mg PO DAILY 04/11/19
aspirin 81 mg tablet,delayed release 81 mg PO DAILY 04/12/25
dapagliflozin propanediol 5 mg tablet (Farxiga) 5 mg PO DAILY 04/12/25
ezetimibe 10 mg tablet (Zetia) 10 mg PO DAILY 04/12/25
glipizide 10 mg tablet 10 mg PO DAILY Diabetes 04/12/25
glipizide 5 mg tablet 5 mg PO QPM Diabetes 04/12/25
ibuprofen 200 mg tablet (Advil) 800 mg PO HS 04/12/25
lisinopril 2.5 mg tablet 2.5 mg PO DAILY 04/12/25
metformin 500 mg tablet,extended release 24 hr 1,000 mg PO BID Diabetes 04/12/25
metoprolol tartrate 50 mg tablet (Lopressor) 50 mg PO BID 04/12/25
mometasone-formoterol HFA 100 mcg-5 mcg/actuation aerosol inhaler (Dulera) 1 inh inhalation R Q6HPRN PRN sob 04/12/25
testosterone 3 pump topical DAILY Hormonal Agent 04/12/25
Review of Systems
-
A 12 point ROS was completed and negative except as noted: Yes
Constitutional: Denies Fever
Respiratory: Denies Cough or Trouble Breathing
Cardiac: Denies Chest Pain or Palpitations
Abdomen/GI: Reports See HPI
Physical Exam
Vital Signs
Vital Signs
Temp Pulse Resp BP Pulse Ox
97.6 F 114 12 120/67 98
04/12/25 16:55 04/12/25 18:30 04/12/25 18:30 04/12/25 18:00 04/12/25 18:30
Physical Exam
General: Comfortable and Conversant
HEENT: Anicteric and Moist mucous membranes
Respiratory: Clear and Non Labored Respirations
Cardiac: S1/S2, Regular Rhythm and Tachycardia
GI: Soft and Other (Slightly hyperactive bowel sounds; Tenderness to palpation on the right)
Genito-urinary: Other (Urine slightly dark and foul smelling)
Musculoskeletal: No Clubbing, No Cyanosis and Other (Left lower extremity slightly shortened)
Skin: Warm and Dry
Neuro: Awake, Alert, Oriented and Nonfocal/grossly intact
Psych: Calm
Laboratory Results
-
04/12/25 17:11
04/12/25 17:11
Laboratory Results
Lactic Acid 3.1 mmol/L (0.7-2.0) H 04/12/25 17:59
Total Bilirubin 0.9 mg/dl (0.2-1.3) 04/12/25 17:11
AST 19 U/L (17-59) 04/12/25 17:11
ALT 26 U/L (0-50) 04/12/25 17:11
Alkaline Phosphatase 70 U/L (38-126) 04/12/25 17:11
Troponin I 0.023 ng/ml 04/12/25 17:11
Data Reviewed
-
Lab Data: Labs Reviewed by me
Impression/Plan
-
Acute Kidney Injury, possibly related to bilateral ureteral stones vs volume loss due to diarrhea and poor oral intake
-Hold nephrotoxic medications
-Continue IVFs
Bilateral Ureteral Stones
-Consult Urology
-Patient going to OR this evening for bilateral ureteral stents
-Start Flomax
-Continue Zosyn - Await urinalysis / urine culture
Hyponatremia, likely related to hypovolemia and poor oral intake
-Check urine sodium and urine osmo
-Continue IVFs
-Recheck sodium later this evening and in AM
Diarrhea, unclear etiology
-Await stool studies
Periprosthetic Left Mid Femur Fracture
-Consult Orthopedic - Tentative plans for transfer to [facility] once medically stable
-Continue non-weight bearing left lower extremity
Coronary Artery Disease s/p Stent
-Continue aspirin
Diabetes Mellitus, Type II
-Hold Farxiga, Glipizide and Metformin
-Continue Januvia
-Monitor sugars and continue coverage insulin
Essential Hypertension
-Hold lisinopril
-Continue metoprolol with hold parameters
Hyperlipidemia
-Continue atorvastatin
COPD, no acute exacerbation
-Continue DuoNeb PRN
Obstructive Sleep Apnea
-Continue CPAP
DVT proph: SCDs
Code Status: Full Code
--- NOTE | 2025-04-12 21:33 | CONS.URO ---
Consultation
-
Date/Time Consultation Performed: 202904/12/25
Performing Provider: Peffer
Reason for Consultation: Sepsis, ureteral stones
Medical History
History of Present Illness
85-year-old male with history of CAD, history of bronchitis, diabetes presenting to the emergency department for left leg pain.
Reports that he fell 2 days ago
Patient does not ambulate at baseline, however is able to transfer to the wheelchair to the bathroom.
Reports 2 days ago, felt very weak, his legs gave out and he fell with his left leg tucked under his right leg. Initially when the medics arrived to help him get into bed, felt okay. He did not seek medical attention. However, since the initial
fall, has been unable to move his left lower extremity with pain upon movement.
Notes generalized weakness, diarrhea, abdominal discomfort. No report of any fever.
Labs show significant CHUY and leukocytosis with tachycardia concerning for developing sepsis
Has been unable to void for urine specimen
Has noted decreased urine output
Denies flank pain
Imaging showed acute fracture of L femur
CT showed bilateral distal ureteral stones without hydronephrosis
Plan is for eventual transfer to [place] for the fracture once stabilized
Past Medical History: CAD, COPD, HTN, Hypercholesterolemia and NIDDM; Negative Arrthythmia
Past Surgical History: Orthopedic
Family History
Family History: Reviewed & Not Pertinent
Allergies/Home Medications
Allergies
Allergy/AdvReac Type Severity Reaction Status Date / Time
No Known Allergies Allergy Verified 04/12/25 16:55
Home Medications
�Medication �Instructions �Recorded �Confirmed �Type
tadalafil 5 mg tablet (Cialis) 5 mg PO DAILY ##0 07/26/14 04/12/25 Rx
atorvastatin 80 mg tablet 80 mg PO QPM #30 tabs 07/27/14 04/12/25 Rx
cetirizine 10 mg tablet 10 mg PO DAILY 04/11/19 04/12/25 History
montelukast 10 mg tablet 10 mg PO HS 04/11/19 04/12/25 History
sitagliptin phosphate 100 mg 100 mg PO DAILY 04/11/19 04/12/25 History
tablet (Januvia)
aspirin 81 mg tablet,delayed 81 mg PO DAILY 04/12/25 04/12/25 History
release
dapagliflozin propanediol 5 mg 5 mg PO DAILY 04/12/25 04/12/25 History
tablet (Farxiga)
ezetimibe 10 mg tablet (Zetia) 10 mg PO DAILY 04/12/25 04/12/25 History
glipizide 10 mg tablet 10 mg PO DAILY Diabetes 04/12/25 04/12/25 History
glipizide 5 mg tablet 5 mg PO QPM Diabetes 04/12/25 04/12/25 History
ibuprofen 200 mg tablet (Advil) 800 mg PO HS 04/12/25 04/12/25 History
lisinopril 2.5 mg tablet 2.5 mg PO DAILY 04/12/25 04/12/25 History
metformin 500 mg tablet,extended 1,000 mg PO BID Diabetes 04/12/25 04/12/25 History
release 24 hr
metoprolol tartrate 50 mg tablet 50 mg PO BID 04/12/25 04/12/25 History
(Lopressor)
mometasone-formoterol HFA 100 1 inh inhalation R Q6HPRN PRN sob 04/12/25 04/12/25 History
mcg-5 mcg/actuation aerosol
inhaler (Dulera)
testosterone 3 pump topical DAILY Hormonal Agent 04/12/25 04/12/25 History
Physical Exam
Vital Signs
Vital Signs
Temp Pulse Resp BP Pulse Ox
97.6 F 114 12 120/67 98
04/12/25 16:55 04/12/25 18:30 04/12/25 18:30 04/12/25 18:00 04/12/25 18:30
Lab / Testing Results
Laboratory Results
11/19/25 17:11
Physical Exam
General: Well Developed, Well Nourished, Comfortable and Sweats
Respiratory: Non Labored Respirations
GI: Soft and Non Tender
Genito-urinary: No Costovertebral Tend
Neuro: AO x 3
Psych: Calm and Intact Judgement
Assessment / Plan
-
85M admitted 2 days after a fall at home resulting in complex L femur fracture
Found to have significant CHUY, sepsis, and bilateral distal ureteral stones without hydronephrosis
- Distal ureteral stones appear to be chronic and nonobstructing without symptoms of acute ureteral obstruction, however given sepsis, CHUY, decreased urine output, and comorbid conditions I recommend bilateral ureteral stent placement
- NPO for OR now
- Urine culture to be sent from OR
- Mcgee catheter post op which can be removed when CHUY improved and no longer needed for accurate I/O
- Eventual outpatient follow up for stone removal
Discussed safe patient positioning with ortho surgeon conflicts analyst who provided instruction on use of knee immobilizer
--- NOTE | 2025-04-12 22:44 | W.IMMPOSTOP ---
Surgical Immed Post Op Note
-
Primary Surgeon: Peffer
Assisting Surgeon: none
Pre-op Diagnosis: Sepsis, b/l ureteral stones
Post-op Diagnosis: same
Procedure Performed: cystoscopy, bilateral ureteral stent placement
Anesthesia Type: general
Specimen / Cultures: urine
Estimated Blood Loss: none
Complications: none
Operative Findings: severe bladder trabeculation, BPH related outlet obstruction, large intravesical median lobe
purulent urine and hemorrhagic cystitis in bladder wall diffusely
stents placed with purulent urine above stones but not clearly obstructed systems
[2025-04-12 22:52] LABS: Urine Character Cloudy (Clear)
[2025-04-12 22:53] LABS: Glucose - Point of Care 184 mg/dl (70-99)
[2025-04-12] MEDS: NOVOLOG vial 2 UNITS SC (22:54)
[2025-04-12 23:16] LABS: Urine Red Blood Cell 26-30 /HPF (0-2); Urine White Cell >100 /HPF (0-5)
[2025-04-13] VITALS (20 sets, daily range): BP systolic 82–137; BP diastolic 39–87; PULSE 86–93; BMI 34.1
[2025-04-13 00:19] LABS: Blood Urea Nitrogen 55 mg/dl (9-20); Calcium 8.5 mg/dl (8.4-10.2); Carbon Dioxide 21 mmol/L (22-30); Chloride 101 mmol/L (98-107); Estimated Creatinine Clearance 25 ml/min; Glucose 186 mg/dl (70-99); Potassium 4.6 mmol/L (3.5-5.1); Sodium 134 mmol/L (135-145); eGFR 21.44
[2025-04-13] MEDS: ROXICODONE 5 MG PO (00:27)
[2025-04-13] MEDS: SINGULAIR 10 MG PO ×2 (00:27→21:45)
[2025-04-13] MEDS: TYLENOL 1000 MG PO ×4 (00:28→23:35)
--- NOTE | 2025-04-13 00:30 | PTCARENOTE ---
Received pt from PACU. Pt is ST 100s on heart monitor. SaO2 98-99% on 2L NC. Pt had alfredo catheter in place draining red urine. However, urine began leaking every time pt coughed. Attempted to irrigate. One large clot irrigated, but then unable to
irrigate further. Reached out to House Provider and Urologist. Urologist informed me to deflate alfredo balloon, reinsert catheter all the way in, and inflate 30mL saline into balloon to see if there was any improvement. Afterwards, urine still
squirting around catheter. Bladder scan= 0mL. Urologist gave telephone verbal order to remove alfredo. Alfredo removed and #30 CC applied. Pt has LLE immobilizer in place for L femur frx. SCD on R leg. Will continue to monitor.
[2025-04-13] MEDS: ZOSYN 50 IV ×4 (01:52→20:09)
[2025-04-13 05:46] LABS: Hematocrit 30.6 % (39.0-52.0); Hemoglobin 9.6 g/dL (13.0-18.0); Mean Corp Hgb Conc. 31.4 g/dL (33.0-37.0); Mean Corpuscular Volume 84.8 fL (80.0-94.0); Platelet Count 210 10^3/uL (130-400); Red Cell Dist. Width 14.7 % (11.5-14.5)
[2025-04-13 06:14] LABS: Blood Urea Nitrogen 54 mg/dl (9-20); Calcium 8.3 mg/dl (8.4-10.2); Carbon Dioxide 21 mmol/L (22-30); Chloride 100 mmol/L (98-107); Estimated Creatinine Clearance 28 ml/min; Glucose 248 mg/dl (70-99); Potassium 4.7 mmol/L (3.5-5.1); Sodium 130 mmol/L (135-145); eGFR 24.56
--- NOTE | 2025-04-13 07:05 | PTCARENOTE ---
Cannot verify VS captured from prior shift.
--- NOTE | 2025-04-13 07:50 | W.PN.UPDATE ---
Update Note
Progress Note Update
Chart reviewed. Patient seen and examined at bedside.
85-year-old male history of left total knee arthroplasty as well as left long cephalomedullary nail fixation for left hip fracture now with left distal periprosthetic femur fracture. I do long detail discussion with patient regarding diagnosis and
treatment options. I would recommend transfer to tertiary care center for trauma orthopedist given the periprosthetic nature of his fracture in the setting of previous cephalomedullary nail. After discussion patient was strongly in favor of this
plan.
Nonweightbearing left lower extremity in knee immobilizer
Pain control
Medical management per primary team
DVT prophylaxis
Plan for transfer to tertiary care center for definitive treatment
Please reach out with questions or concerns
Formal consult note to follow
[2025-04-13 08:11] LABS: Glucose - Point of Care 249 mg/dl (70-99)
[2025-04-13] MEDS: LOPRESSOR 50 MG PO (08:27)
[2025-04-13] MEDS: FLOMAX 0.4 MG PO (08:27)
[2025-04-13] MEDS: ASPIR LOW (ENTERIC COATED) 81 MG PO (08:27)
[2025-04-13] MEDS: NSS 1000 IV ×3 (08:28→23:36)
[2025-04-13] MEDS: NOVOLOG FLEXPEN-MODERATE RESISTANCE 3 UNITS SC ×2 (08:30→18:22)
[2025-04-13 09:32] LABS: Glycohemoglobin (HgbA1c) 7.6 % (4.0-5.9)
[2025-04-13] MEDS: JANUVIA 50 MG PO (09:36)
--- NOTE | 2025-04-13 10:44 | W.PN.HOSP.TC ---
Today's Communication/Plan
-
See A/P
Assessment / Plan
Assessment / Plan
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 In ED he was also found to have sepsis, CHUY, bilateral kidney stones.
Sepsis secondary to UTI with lactic acidosis and CHUY
CT showed bilateral distal ureteral stones, that were nonobstructing. Unclear if they are infected.
UA positive for UTI
UCX pending, BCx pending
Empiric IV Zosyn
Sepsis bolus and maintenance IVF
LA is now WNL
Urology was consulted
Patient was taken to the OR emergently for bilateral ureteral stent placement.
CHUY
Nonobstructive ureteral stents, UTI as above
S/p bilateral stent placement on 04/12 by urology as above
Mcgee can be removed when CHUY improving
Outpatient follow-up for stone removal when medically stable
Continue IV fluids, continue Flomax
Trend creatinine, improved from 2.8��>2.5
Acute displaced left distal periprosthetic femur fracture
history of left total knee arthroplasty as well as left long cephalomedullary nail fixation for left hip fracture, does not ambulate at baseline, transfers from to
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
Femur x-ray now showing acute displaced fracture
Ortho consulted, they recommend transfer to tertiary care center for trauma orthopedist. Transfer has been initiated, pending medical stability.
Nonweightbearing left lower extremity in knee immobilizer
Oxycodone and morphine prn pain
DM 2
Uncontrolled in setting of sepsis
Hold home glipizide, metformin, and Farxiga while inpatient
Lantus 10 units daily, adjust as needed, SSI
Diarrhea
Multiple episodes at home, patient took loperamide
If persistent check school stool studies
Essential Hypertension
BP on low side, hold lisinopril
Continue metoprolol with hold parameters
CAD s/p stent
-Continue ASA/atorvastatin, BB, hold ACEi as above
COPD, no acute exacerbation
Continue DuoNeb PRN
Obstructive Sleep Apnea
Continue CPAP
DVT proph: Hep SC
Anticipated Discharge: 24 - 48 hours
Subjective/Interval History
-
Date of Service: April 13, 2025
Patient feeling very tired
Objective Data
-
Labs:
Laboratory Results
04/12/25 04/13/25
23:48 05:32
WBC 9.6
Hgb 9.6 L
Hct 30.6 L
Plt Count 210
Sodium 134 L 130 L
Potassium 4.6 4.7
Chloride 101 100
Carbon Dioxide 21 L 21 L
BUN 55 H 54 H
Creatinine 2.8 H 2.5 H
Glucose 186 H 248 H
Calcium 8.5 8.3 L
Vital Signs:
Vital Signs
Temp Pulse Resp BP Pulse Ox
97.8 F 86 14 116/63 98
04/13/25 07:38 04/13/25 07:00 04/13/25 07:00 04/13/25 06:00 04/13/25 08:48
I&O
04/12/25 04/13/25 04/14/25
06:59 06:59 06:59
Intake Total 965 / 965
Output Total 100 / 100
Balance 865 / 865
Review of Systems
-
All other systems: Reviewed and negative
Physical Exam
-
General: No Apparent Distress
HEENT: Moist Mucous Membranes, Anicteric and PERRLA
Respiratory: Clear to Auscultation; Negative Wheezes, Rales or Rhonchi
Cardiac: Regular Rhythm and S1/S2; Negative Murmur, Rub or Gallop
GI: Soft, Nontender, Nondistended and Normal Bowel Sounds
Musculoskeletal: No Edema and Other (Left leg in brace, pain with movement)
Skin: Warm and Dry; Negative Rash, Ulcers or Lesions
Neuro: Awake and AO x 3
Hematologic / Lymphatic: No Lymphadenopathy
Psych: Calm
Data Reviewed
-
Diagnostic Radiology: Report Reviewed by me and Discussed with Physician
CT Scan: Report Reviewed by me and Discussed with Physician
Labs: Labs Reviewed by me and Discussed with Patient
[2025-04-13 12:07] LABS: Glucose - Point of Care 262 mg/dl (70-99)
--- NOTE | 2025-04-13 13:01 | CM ---
I.A: Completed By SUMMER Ritchie
Patient lives with his in a [address] [facility] [[email or web address]] with [address], has a ramp, BA on 2nd floor with a powder room on 1st.
DME: Patient has 3 walkers, wheelchair, power-chair, and CPAP (cannot recall the name). Patient has had [facility] 3x he said, been to a rehab in [place] called [facility]'?
PCP: Dr. Cindy Collier listed, he cannot recall.
Pharmacy: [facility] in [place]
Patient is wheelchair bound and will need transport to home. PLAN: Home No Needs.
--- NOTE | 2025-04-13 13:10 | CM ---
F/U: Hospitalist stated that the plan was started last night for patient to transfer to [facility]. SUMMER Ritchie assisted in speaking to the Transfer Center: #[phone], and was told that the Hospitalist needs to call for medical update
to [facility] physician and out community case manager faxed over a face sheet. Now pending a bed. PLAN: Transfer to [facility].
[2025-04-13] MEDS: ZOFRAN 4 MG IV (13:13)
[2025-04-13] MEDS: LANTUS 0.1 UNITS SC (13:15)
[2025-04-13] MEDS: NOVOLOG FLEXPEN-MODERATE RESISTANCE 5 UNITS SC (13:16)
--- NOTE | 2025-04-13 15:36 | PTCARENOTE ---
Pt's assessment as documented. Aox3. Awaiting transfer to [facility]. Pt, and daughter updated at length. Care as documented. Ringing appropriately, call gomez within reach.
--- NOTE | 2025-04-13 16:42 | W.PN.URO.CBU ---
Today's Communication / Plan
-
Continue IV abx pending cultures
Eventual outpatient follow up for stone removal
Okay for transfer to [place] when otherwise stable for management of complex femur fracture
Assessment / Plan
-
85M admitted 2 days after a fall at home resulting in complex L femur fracture
Found to have significant CHUY, sepsis, and bilateral distal ureteral stones without hydronephrosis
s/p b/l ureteral stent placement 04/12
- Continue IV abx pending urine cultures
- Alfredo catheter placed intraopfor maximal drainage but poorly tolerated post op with bladder spasm/leakage around alfredo and subsequently removed
- Voiding without difficulty 04/13
- Eventual outpatient follow up for stone removal
- Okay for transfer to [place] when otherwise stable for management of complex femur fracture
Diagnosis
-
Date of Service: April 13, 2025
-
Patient Diagnosis:
Sepsis
UTI
bilateral ureteral stones
Post Op s/p b/l stents 04/12
Subjective
-
Feeling better
Voiding without difficulty
Alfredo was removed after issues with drainage/bladder spasm
Objective
-
Vital Signs
Temp Pulse Resp BP Pulse Ox
97.7 F 78 17 90/50 98
04/13/25 11:51 04/13/25 15:30 04/13/25 15:30 04/13/25 12:01 04/13/25 15:30
Intake and Output
04/12/25 04/13/25 04/14/25
06:59 06:59 06:59
Intake Total 965 / 965
Output Total 100 / 100
Balance 865 / 865
Intake:
IV fluids (Total) 915 / 915
normosol 100 / 100
IV piggybacks 50 / 50
Output:
Urine, Voided 100 / 100
Other:
How many times incontinent 1
MODERATE amount urine
How many times incontinent 1 1
SATURATED amount urine
Laboratory Results
04/13/25 05:32
04/13/25 05:32
Physical Exam
-
General - well developed, well nourished, no acute distress
Chest - clear
Abdomen - soft, non-tender
--- NOTE | 2025-04-13 17:37 | CON.ORTHO ---
Consultation
-
Date/Time Consultation Performed: 04/13/25 730AM
Consultation - Orthopedics
History
HPI: 85-year-old male history of ambulatory dysfunction presented to emergency department complaints of left leg pain and inability to bear weight after a fall. He was subsequently diagnosed with a left distal femur periprosthetic femur fracture.
He was admitted to the hospitalist service. He did go to the operating room with urology for bilateral ureteral stent placement. Orthopedics was consulted for further evaluation and treatment. This morning patient reports being comfortable at
rest. He reports pain to the left leg and knee region. He reports a history of left total knee arthroplasty performed at [facility] many years ago. Reports more recently sustaining a left hip fracture in [place] and underwent cephalomedullary nail
fixation. He reports that he is minimal ambulator at baseline but does stand to transfer. He mostly uses a wheelchair. 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
Allergies / Home Medications
Past medical history: UTI/cystitis, coronary artery disease status post stent, diabetes mellitus type 2, essential hypertension, hyperlipidemia, COPD, obstructive sleep apnea, ambulatory dysfunction
Past surgical history: Left total knee arthroplasty left cephalomedullary nail fixation left hip fracture, ORIF left wrist fracture, left rotator cuff repair
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
Family history: Not pertinent
Allergy/AdvReac Type Severity Reaction Status Date / Time
No Known Allergies Allergy Verified 04/12/25 16:55
�Medication �Instructions �Recorded
tadalafil 5 mg tablet (Cialis) 5 mg PO DAILY ##0 07/26/14
atorvastatin 80 mg tablet 80 mg PO QPM #30 tabs 07/27/14
cetirizine 10 mg tablet 10 mg PO DAILY Allergies 04/11/19
montelukast 10 mg tablet 10 mg PO HS Lung/Breathing Issues 04/11/19
sitagliptin phosphate 100 mg 100 mg PO DAILY Diabetes 04/11/19
tablet (Januvia)
aspirin 81 mg tablet,delayed 81 mg PO DAILY Blood Clot 04/12/25
release Prevention/Tx
dapagliflozin propanediol 5 mg 5 mg PO DAILY Diabetes 04/12/25
tablet (Farxiga)
ezetimibe 10 mg tablet (Zetia) 10 mg PO DAILY High Cholesterol 04/12/25
glipizide 10 mg tablet 10 mg PO DAILY Diabetes 04/12/25
glipizide 5 mg tablet 5 mg PO QPM Diabetes 04/12/25
ibuprofen 200 mg tablet (Advil) 800 mg PO HS Pain 04/12/25
lisinopril 2.5 mg tablet 2.5 mg PO DAILY Blood Pressure 04/12/25
metformin 500 mg tablet,extended 1,000 mg PO BID Diabetes 04/12/25
release 24 hr
metoprolol tartrate 50 mg tablet 50 mg PO BID Blood Pressure 04/12/25
(Lopressor)
mometasone-formoterol HFA 100 1 inh inhalation R Q6HPRN PRN sob 04/12/25
mcg-5 mcg/actuation aerosol
inhaler (Dulera)
testosterone 3 pump topical DAILY Hormonal Agent 04/12/25
Vital Signs / Lab Results
Temp Pulse Resp BP Pulse Ox
97.7 F 78 17 90/50 98
04/13/25 11:51 04/13/25 15:30 04/13/25 15:30 04/13/25 12:01 04/13/25 15:30
04/13/25 05:32
04/13/25 05:32
10 point review systems reviewed and negative unless otherwise stated
General: Pleasant, no acute distress at rest
Musculoskeletal left lower extremity
Knee immobilizer in place, skin visualized, no erythema or ecchymotic staining
Palpable knee effusion
Tenderness palpation over distal femur and knee diffusely
Range of motion testing deferred
Positive EHL, FHL, ankle dissection, plantarflexion
Sensation grossly tact to light touch distally
Brisk cap refill
No other areas of bony tenderness palpation or crepitation along bones or joints of tertiary exam
Diagnostic studies
X-rays left femur/left knee independently viewed by myself. Radiology report reviewed. There is evidence of displaced the left distal periprosthetic femur fracture with extension of fracture to the knee prosthesis. Evidence of previous
cephalomedullary nail
Assessment / Plan
85-year-old male ambulatory dysfunction status post fall with a left displaced periprosthetic femur fracture in setting of previous cephalomedullary nail fixation. I did have a long detail discussion with the patient as well as emergency room
providers upon his admission. I explained to him that given the complex nature of his fracture, I would recommend transfer to tertiary care center such as [facility] for evaluation definitive management by trained orthopedic trauma
specialist. Patient stated understanding and was in agreement with this plan. Once patient is medically stabilized, would recommend transfer. In the meantime recommend immobilization with long knee immobilizer. Maintain nonweightbearing status.
DVT prophylaxis per primary team
Nonweightbearing left lower extremity in knee immobilizer
Pain control
DVT prophylaxis
Medical management per primary team
Definitive treatment recommended at tertiary care center. Recommend transfer.
[2025-04-13] MEDS: LIPITOR 80 MG PO (17:45)
[2025-04-13 17:55] LABS: Glucose - Point of Care 221 mg/dl (70-99)
--- NOTE | 2025-04-13 20:00 | PTCARENOTE ---
Received pt from previous shift. Systems reviewed, see flowsheets. Pt lying comfortably in bed. Pain is 1/10 in his LLE without movement, but pt cries out with turning or movement of that leg. Pt SaO2 94% on RA. NSR 90s on heart monitor. BPs soft,
20:00 lopressor dose held per parameters. NSS infusing at 125mL/hr through R wrist PIV. LAC #20 to be removed as it is a pre-hospital site. Male purewick in place draining michelle urine. L leg immobilizer in place. Q2 turns maintained. Heels elevated
off bed. Sacral and heel foams in place. Will continue to monitor.
[2025-04-13] MEDS: LOPRESSOR PO (20:06)
[2025-04-13] MEDS: HEPARIN 5000 UNITS SC (20:09)
[2025-04-13 21:20] LABS: Glucose - Point of Care 225 mg/dl (70-99)
--- NOTE | 2025-04-13 22:15 | PTCARENOTE ---
Stuart texted House Provider at 21:30 that pt's BP started to run low, 87/49 (59), with one prior being 82/39 (53). Orders received to increase IVF rate to 150mL/hr and give one STAT 2.5mg PO midodrine. Medications administered and pt's 22:00 BP
1105/51 (67). Will continue to monitor.
[2025-04-14] VITALS (14 sets, daily range): BP systolic 71–142; BP diastolic 29–98; BMI 34.8
[2025-04-14] MEDS: ZOSYN 50 IV ×4 (01:21→19:55)
--- NOTE | 2025-04-14 03:45 | PTCARENOTE ---
Rectal trumpet placed, draining clear liquid. Sample drawn from tube and sent to lab. Verified with lab that the clear liquid came from pt's rectum and they said they would try to run the sample.
[2025-04-14 03:56] LABS: Hematocrit 25.5 % (39.0-52.0); Hemoglobin 8.2 g/dL (13.0-18.0); Mean Corp Hgb Conc. 32.2 g/dL (33.0-37.0); Mean Corpuscular Volume 85.6 fL (80.0-94.0); Nucleated Red Blood Cells % 0 % (-); Platelet Count 198 10^3/uL (130-400); Red Cell Dist. Width 14.5 % (11.5-14.5)
[2025-04-14 04:26] LABS: Blood Urea Nitrogen 50 mg/dl (9-20); Calcium 7.8 mg/dl (8.4-10.2); Carbon Dioxide 20 mmol/L (22-30); Chloride 105 mmol/L (98-107); Estimated Creatinine Clearance 37 ml/min; Glucose 217 mg/dl (70-99); Potassium 4.1 mmol/L (3.5-5.1); Sodium 131 mmol/L (135-145); eGFR 34.14
[2025-04-14 08:44] LABS: Glucose - Point of Care 196 mg/dl (70-99)
[2025-04-14] MEDS: NSS 1000 IV (09:52)
[2025-04-14] MEDS: MORPHINE SULFATE 4 MG IV (09:56)
[2025-04-14] MEDS: ASPIR LOW (ENTERIC COATED) 81 MG PO (09:58)
[2025-04-14] MEDS: TYLENOL 1000 MG PO ×3 (09:59→21:26)
[2025-04-14] MEDS: HEPARIN 5000 UNITS SC ×2 (09:59→19:54)
[2025-04-14] MEDS: NOVOLOG FLEXPEN-MODERATE RESISTANCE 1 UNITS SC ×2 (10:02→17:50)
[2025-04-14] MEDS: FLOMAX 0.4 MG PO (10:03)
[2025-04-14] MEDS: LANTUS 0.15 UNITS SC (10:04)
[2025-04-14] MEDS: LANTUS SC (10:27)
[2025-04-14] MEDS: LOPRESSOR PO (10:28)
--- NOTE | 2025-04-14 11:00 | WOUNDNOTE ---
R 3RD TOE
--- NOTE | 2025-04-14 11:00 | WOUNDNOTE ---
L GLUTEAL CREASE (SULCUS)
--- NOTE | 2025-04-14 11:00 | WOUNDNOTE ---
SACRAL/COCCYX/BUTTOCKS
--- NOTE | 2025-04-14 11:00 | WOUNDNOTE ---
L THIGH (POSTERIOR UPPER)
--- NOTE | 2025-04-14 11:00 | WOUNDNOTE ---
SACRAL/COCCYX/BUTTOCKS
--- NOTE | 2025-04-14 11:00 | WOUNDNOTE ---
SACRAL/COCCYX/BUTTOCKS
--- NOTE | 2025-04-14 11:27 | WOUNDNOTE ---
[facility] RN note: Patient admitted with femur fracture, ureteral stones. Patient fell on floor at home prior to admission.
See H&P for complete history. Patient to be transferred to [facility] when bed available.
PMH: L TKR, L hip surgery, ASCVD, HTN, DM, wheelchair bound, UTI/sepsis, bilateral distal ureteral stones without obstruction, diarrhea, COPD, obesity, CAD with stent.
Wound Location and type/assessment: Patient admitted with: Coccyx stage 2 vs DTI, sacral/buttocks stage 1 pressure injury, lower coccyx/perianal ulcers deep dermal appearing with yellow fibrin suspect r/t moisture. L gluteal crease (sulcus) MASD. R
lateral ankle with small red/faint purple ecchymotic area suspect stage 1 vs DTI.
Patient developed a deep dermal stage 2 L posterior upper thigh pressure injury from his L knee immobilizer. L lateral ankle blanchable red. Heels blanchable red.
Appetite: good.
Pressure redistribution devices in place: Centrella Pro bed.
Plan: Patient was premedicated for pain by SILVIA Oneil prior to turning/wound care. SILVIA Tan helped with turning patient and removing L leg splint for skin care. Sacral shaped silicone border foam changed on sacrum. Silicone border foam applied
to R lateral ankle. Protective heel foam dressings changed. Silicone border foam with ABD on top applied to L posterior thigh wound and also to L lateral/posterior ankle/Achilles for padding/protection. Reapplied L leg splint. Confirmed with
Telly nursing to remove L leg immobilizer daily and prn skin check/care (keep leg straight). Updated and tiger texted picture of L posterior thigh wound to Dr. Varner asking if a shorter immobilizer can be used. Dr. Varner responded yes and
to pad area. Discussed with nurse Clarice and Britney. t/c SPD and ordered size 22 inch knee immobilizer (patient wearing 24 inch).
Will confirm orders with Dr. Tineo and discussed with nursing.
Care plan to be updated. Call if needed.
--- NOTE | 2025-04-14 12:26 | W.PN.HOSP.TC ---
Today's Communication/Plan
-
Continue IVF, IV antibiotics
will discuss with transfer center
Assessment / Plan
Assessment / Plan
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 In ED he was also found to have sepsis, UTI, CHUY, bilateral kidney stones.
Sepsis secondary to UTI with lactic acidosis and CHUY
CT showed bilateral distal ureteral stones, that were nonobstructing. Unclear if they are infected.
UA positive for UTI
UCX +GNB, c/s pending, BCx NGTD
Empiric IV Zosyn
Sepsis bolus and maintenance IVF
LA 3.1 on admit, repeat LA is 1 today
Urology was consulted, Patient was taken to the OR emergently for bilateral ureteral stent placement.
CHUY
Nonobstructive ureteral stents, UTI as above
S/p bilateral stent placement on 04/12 by urology as above
Mcgee was removed as patient was not tolerating it, he is voiding without it.
Outpatient follow-up for stone removal when medically stable
Continue IV fluids, continue Flomax
Trend creatinine, improved from 2.8��>2.5
Acute displaced left distal periprosthetic femur fracture
history of left total knee arthroplasty as well as left long cephalomedullary nail fixation for left hip fracture, does not ambulate at baseline, transfers from to
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
Femur x-ray now showing acute displaced fracture
Ortho consulted, they recommend transfer to tertiary care center for trauma orthopedist. Transfer has been initiated, pending medical stability. Will discuss with transfer center today.
Nonweightbearing left lower extremity in knee immobilizer
Oxycodone and morphine prn pain
DM 2
Uncontrolled in setting of sepsis
A1c 7.6%
Hold home glipizide, metformin, and Farxiga while inpatient
Lantus 15 units daily, 5 units TID-meals, adjust as needed, SSI
Diarrhea
Multiple episodes at home, patient took loperamide
C. difficile negative, Salmonella/Shigella/Campylobacter/Shigella pending
Essential Hypertension
BP on low side but stable, hold lisinopril and metoprolol. Continue IVF.
BLE edema
Patient notes this has been ongoing since CLEARANCE REPRESENTATIVE. Suspect chronic lymphedema/chronic venous stasis. Echo from 2022 reviewed, EF 56% with no RWMA, no valve disease, stage I diastolic dysfunction. Does not appear to be having S/S of CHF at this time.
Treating sepsis with IV fluids, not giving Lasix. Discussed with RN, will start with compression hose on right leg only.
CAD s/p stent
-Continue ASA/atorvastatin, BB, hold ACEi as above
COPD, no acute exacerbation
Continue DuoNeb PRN
Obstructive Sleep Apnea
Continue CPAP
DVT proph: Hep SC
Anticipated Discharge: 24 - 48 hours
Subjective/Interval History
-
Date of Service: April 14, 2025
Patient feeling not himself, foggy, having trouble with cognitive tasks, such as paying bills and almost put in the wrong amount etc. no word finding difficulty, no difficulty understanding verbal or written language, no motor deficits, no headache,
no visual deficits, denies N/C/CP/SOB. Notes pain in left leg with movement or palpation.
Objective Data
-
Labs:
Laboratory Results
04/14/25
03:17
WBC 7.1
Hgb 8.2 L
Hct 25.5 L
Plt Count 198
Sodium 131 L
Potassium 4.1
Chloride 105
Carbon Dioxide 20 L
BUN 50 H
Creatinine 1.9 H
Glucose 217 H
Calcium 7.8 L
Vital Signs:
Vital Signs
Temp Pulse Resp BP Pulse Ox
98.4 F 93 17 103/62 100
04/14/25 11:30 04/14/25 09:30 04/14/25 09:30 04/14/25 08:00 04/14/25 09:30
I&O
04/13/25 04/14/25 04/15/25
06:59 06:59 06:59
Intake Total 965 / 965 2180 / 2180
Output Total 100 / 100 1150 / 1150
Balance 865 / 865 1030 / 1030
Review of Systems
-
History Source: Patient
All other systems: Reviewed and negative
Physical Exam
-
General: No Apparent Distress
HEENT: Moist Mucous Membranes, Anicteric and PERRLA
Respiratory: Clear to Auscultation; Negative Wheezes, Rales or Rhonchi
Cardiac: Regular Rhythm and S1/S2; Negative Murmur, Rub or Gallop
GI: Soft, Nontender, Nondistended and Normal Bowel Sounds
Musculoskeletal: Edema, Right Lower Extrem, Edema, Left Lower Extrem and Other (Left leg in brace, pain with movement)
Skin: Warm and Dry; Negative Rash, Ulcers or Lesions
Neuro: Awake and AO x 3
Hematologic / Lymphatic: No Lymphadenopathy
Psych: Calm
Data Reviewed
-
Diagnostic Radiology: Report Reviewed by me, Discussed with Physician and Discussed with Patient
CT Scan: Report Reviewed by me, Discussed with Physician and Discussed with Patient
Labs: Labs Reviewed by me and Discussed with Patient
[2025-04-14 12:58] LABS: Glucose - Point of Care 210 mg/dl (70-99)
[2025-04-14] MEDS: NOVOLOG FLEXPEN-MODERATE RESISTANCE 3 UNITS SC (13:24)
[2025-04-14] MEDS: NOVOLOG FLEXPEN 5 UNITS SC ×2 (13:25→17:51)
--- NOTE | 2025-04-14 14:24 | CM ---
Discharge POC: Transfer to [facility] for management of complex femur fracture when bed available.
[2025-04-14] MEDS: NSS IV (15:21)
--- NOTE | 2025-04-14 16:00 | PTCARENOTE ---
Patient AAOX3. Left lower leg restriction. Immobilizer in place. Pain with any movement in left leg. Medicating with pain medication as ordered. Wound RN to see patient. Orders for wound care obtained. Sacral dressing intact. Male pure wick
in use. Tolerating diet. SR on monitor. VS stable. Call gomez in reach.
[2025-04-14 17:28] LABS: Glucose - Point of Care 193 mg/dl (70-99)
[2025-04-14] MEDS: LIPITOR 80 MG PO (17:52)
[2025-04-14] MEDS: ROXICODONE 5 MG PO (17:53)
[2025-04-14] MEDS: SINGULAIR 10 MG PO (21:26)
[2025-04-14 21:42] LABS: Glucose - Point of Care 237 mg/dl (70-99)
[2025-04-14 21:46] LABS: Urine Character Clear (Clear)
[2025-04-14 22:17] LABS: Urine Red Blood Cell >100 /HPF (0-2)
[2025-04-14 22:18] LABS: Urine White Cell 16-20 /HPF (0-5)
--- NOTE | 2025-04-14 23:53 | PTCARENOTE ---
assumed care of patient. pt is AAOx3, NEWHALEN, able to make needs known. VSS. 96% RA. rectal trumpet intact draining clear stool. male external catheter intact, draining yellow urine. urine specimen sent down per order. q2t. left knee immobilizer
intact. pt reports pain as tolerable at this time. care ongoing.
[2025-04-15] VITALS (8 sets, daily range): BP systolic 103–160; BP diastolic 53–97; BMI 35.4
[2025-04-15] MEDS: ZOSYN 50 IV ×2 (01:52→08:14)
[2025-04-15] MEDS: MORPHINE SULFATE 4 MG IV ×2 (05:54→15:24)
[2025-04-15 06:27] LABS: Hematocrit 27.5 % (39.0-52.0); Hemoglobin 8.7 g/dL (13.0-18.0); Mean Corp Hgb Conc. 31.6 g/dL (33.0-37.0); Mean Corpuscular Volume 84.4 fL (80.0-94.0); Nucleated Red Blood Cells % 0 % (-); Platelet Count 219 10^3/uL (130-400); Red Cell Dist. Width 14.5 % (11.5-14.5)
[2025-04-15 06:57] LABS: ALT (SGPT) 25 U/L (0-50); AST (SGOT) 19 U/L (17-59); Albumin 3.0 g/dl (3.5-5.0); Alkaline Phosphatase 78 U/L (38-126); Blood Urea Nitrogen 27 mg/dl (9-20); Calcium 8.2 mg/dl (8.4-10.2); Carbon Dioxide 21 mmol/L (22-30); Chloride 109 mmol/L (98-107); Estimated Creatinine Clearance 59 ml/min; Glucose 191 mg/dl (70-99); Potassium 3.9 mmol/L (3.5-5.1); Sodium 135 mmol/L (135-145); Total Protein 5.7 g/dl (6.3-8.2); eGFR 59.26
[2025-04-15 08:10] LABS: Glucose - Point of Care 183 mg/dl (70-99)
[2025-04-15] MEDS: NOVOLOG FLEXPEN 5 UNITS SC (08:12)
[2025-04-15] MEDS: NOVOLOG FLEXPEN-MODERATE RESISTANCE 1 UNITS SC (08:12)
[2025-04-15] MEDS: LANTUS 0.15 UNITS SC (08:13)
[2025-04-15] MEDS: TYLENOL 1000 MG PO ×3 (08:13→21:56)
[2025-04-15] MEDS: ASPIR LOW (ENTERIC COATED) 81 MG PO (08:13)
[2025-04-15] MEDS: HEPARIN 5000 UNITS SC ×2 (08:14→19:40)
[2025-04-15] MEDS: FLOMAX 0.4 MG PO (08:17)
--- NOTE | 2025-04-15 09:05 | W.PN.HOSP.TC ---
Today's Communication/Plan
-
Change abx to ceftriaxone
Have d/w transfer center and the on-call ortho, due to surgeon availability pt will not go to OR until at least Thursday. Pt not yet accepted, will need to call Thursday morning to speak to the admitting service and get him transferred over there on
Thursday.
Assessment / Plan
Assessment / Plan
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 In ED he was also found to have sepsis, UTI, CHUY, bilateral kidney stones.
Sepsis secondary to UTI with lactic acidosis and CHUY - improved
CT showed bilateral distal ureteral stones, that were nonobstructing. Unclear if they are infected.
UA positive for UTI
Urology was consulted, Patient was taken to the OR emergently for bilateral ureteral stent placement.
UCX +Providencia rettegri, repeat pending, BCx NGTD
Empiric IV Zosyn changee to ceftriaxone
s/p Sepsis bolus and maintenance IVF, now stopped.
LA 3.1 on admit, repeat LA is 1
CHUY - resolved
Nonobstructive ureteral stents, UTI as above
S/p bilateral stent placement on 04/12 by urology as above
Mcgee was removed as patient was not tolerating it, he is voiding without it.
Outpatient follow-up for stone removal when medically stable
Continue IV fluids, continue Flomax
Trend creatinine, improved from 2.8��>2.5-->1.2
Acute displaced left distal periprosthetic femur fracture
history of left total knee arthroplasty as well as left long cephalomedullary nail fixation for left hip fracture, does not ambulate at baseline, transfers from to
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
Femur x-ray now showing acute displaced fracture
Ortho consulted, they recommend transfer to tertiary care center for trauma orthopedist at [facility] who doesn't have OR availability until Thursday. Now that he is medically stable, d/w Dr. Berman he is not the specialist and he is not comfortable
accepting the pt over the weekend. Will need to call back Thursday [phone] to get pt accepted and transported.
Nonweightbearing left lower extremity in knee immobilizer
Oxycodone and morphine prn pain
DM 2
Uncontrolled in setting of sepsis
A1c 7.6%
Hold home glipizide, metformin, and Farxiga while inpatient
Lantus 15 units daily, 6 units TID-meals, adjust as needed, SSI
Diarrhea
Multiple episodes at home, patient took loperamide, persists here
C. difficile negative, Salmonella/Shigella/Campylobacter/Shigella pending although unlikley given time frame.
prn
Essential Hypertension
No longer hypotensive. Resume home metoprolol. Stop IVF. Holding lisinopril until needed.
BLE edema
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 Suspect chronic lymphedema/chronic venous stasis. Echo from 2022 reviewed, EF 56% with no RWMA, no valve disease, stage I diastolic dysfunction. Does not appear to be having S/S of CHF at this time.
BNP is not elevated. s/p IV fluids for sepsis. Discussed with RN, will start with compression hose on right leg only. Consider diuresis with IV lasix
CAD s/p stent
-Continue ASA/atorvastatin, BB, hold ACEi as above
COPD, no acute exacerbation
Continue DuoNeb PRN
Obstructive Sleep Apnea
Continue CPAP
DVT proph: Hep SC
Anticipated Discharge: 24 - 48 hours
Subjective/Interval History
-
Date of Service: April 15, 2025
Feels much better but still having diarrhea
Objective Data
-
Labs:
Laboratory Results
04/15/25
05:49
WBC 6.9
Hgb 8.7 L
Hct 27.5 L
Plt Count 219
Sodium 135
Potassium 3.9
Chloride 109 H
Carbon Dioxide 21 L
BUN 27 H
Creatinine 1.2
Glucose 191 H
Calcium 8.2 L
Total Bilirubin 1.1
AST 19
ALT 25
Alkaline Phosphatase 78
Vital Signs:
Vital Signs
Temp Pulse Resp BP Pulse Ox
97.7 F 96 18 146/79 96
04/14/25 22:53 04/15/25 08:33 04/15/25 08:33 04/15/25 08:33 04/15/25 06:00
I&O
04/14/25 04/15/25 04/16/25
06:59 06:59 06:59
Intake Total 2180 / 2180 3195 / 3195 50 / 50
Output Total 1150 / 1150 2200 / 2200
Balance 1030 / 1030 995 / 995 50 / 50
Review of Systems
-
History Source: Patient
All other systems: Reviewed and negative
Physical Exam
-
General: No Apparent Distress
HEENT: Moist Mucous Membranes, Anicteric and PERRLA
Respiratory: Clear to Auscultation; Negative Wheezes, Rales or Rhonchi
Cardiac: Regular Rhythm and S1/S2; Negative Murmur, Rub or Gallop
GI: Soft, Nontender, Nondistended and Normal Bowel Sounds
Musculoskeletal: Edema, Right Lower Extrem, Edema, Left Lower Extrem and Other (Left leg in brace, pain with movement)
Skin: Warm and Dry; Negative Rash, Ulcers or Lesions
Neuro: Awake and AO x 3
Hematologic / Lymphatic: No Lymphadenopathy
Psych: Calm
Data Reviewed
-
Diagnostic Radiology: Report Reviewed by me, Discussed with Physician and Discussed with Patient
CT Scan: Report Reviewed by me, Discussed with Physician and Discussed with Patient
Labs: Labs Reviewed by me and Discussed with Patient
[2025-04-15] MEDS: LOPRESSOR 50 MG PO ×2 (10:08→19:39)
[2025-04-15] MEDS: ROCEPHIN 1000 MG IV (10:09)
[2025-04-15] MEDS: STERILE WATER FOR INJECTION 10 ML IV (10:09)
[2025-04-15 12:08] LABS: Glucose - Point of Care 230 mg/dl (70-99)
[2025-04-15] MEDS: NOVOLOG FLEXPEN 6 UNITS SC ×2 (12:18→17:33)
[2025-04-15] MEDS: NOVOLOG FLEXPEN-MODERATE RESISTANCE 3 UNITS SC ×2 (12:18→17:32)
--- NOTE | 2025-04-15 15:33 | TRANSFER ---
Pt tx to [facility]. Report given to SILVIA Stovall. Family at bedside. Plan of care ongoing.
[2025-04-15 17:31] LABS: Glucose - Point of Care 232 mg/dl (70-99)
[2025-04-15] MEDS: LIPITOR 80 MG PO (17:31)
[2025-04-15 21:39] LABS: Glucose - Point of Care 203 mg/dl (70-99)
[2025-04-15] MEDS: SINGULAIR 10 MG PO (21:56)
[2025-04-16 05:57] VITALS: BMI 36.4
[2025-04-16] MEDS: MORPHINE SULFATE 4 MG IV ×2 (06:04→20:22)
[2025-04-16 06:36] LABS: ALT (SGPT) 23 U/L (0-50); AST (SGOT) 18 U/L (17-59); Albumin 3.0 g/dl (3.5-5.0); Alkaline Phosphatase 70 U/L (38-126); Blood Urea Nitrogen 18 mg/dl (9-20); Calcium 8.4 mg/dl (8.4-10.2); Carbon Dioxide 26 mmol/L (22-30); Chloride 107 mmol/L (98-107); Estimated Creatinine Clearance 81 ml/min; Glucose 182 mg/dl (70-99); Potassium 4.0 mmol/L (3.5-5.1); Sodium 137 mmol/L (135-145); Total Protein 5.5 g/dl (6.3-8.2); eGFR > 60.00
[2025-04-16 06:56] LABS: Hematocrit 28.9 % (39.0-52.0); Hemoglobin 9.3 g/dL (13.0-18.0); Mean Corp Hgb Conc. 32.2 g/dL (33.0-37.0); Mean Corpuscular Volume 83.5 fL (80.0-94.0); Platelet Count 243 10^3/uL (130-400); Red Cell Dist. Width 14.5 % (11.5-14.5)
[2025-04-16 07:25] VITALS: BP 161/75
--- NOTE | 2025-04-16 07:47 | W.PN.HOSP.TC ---
Today's Communication/Plan
-
adjust insulin
prn imodium
IV antibiotics
medically stable to transfer to [facility] Thursday, will need to call transfer center and do doc-doc to get accepted.
Assessment / Plan
Assessment / Plan
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 In ED he was also found to have sepsis, UTI, CHUY, bilateral kidney stones.
Sepsis secondary to UTI with lactic acidosis and CHUY - improved
CT showed bilateral distal ureteral stones, that were nonobstructing. Unclear if they are infected.
UA positive for UTI
Urology was consulted, Patient was taken to the OR emergently for bilateral ureteral stent placement.
UCX +Providencia rettegri, repeat pending, BCx NGTD
Empiric IV Zosyn changed to ceftriaxone
s/p Sepsis bolus and maintenance IVF, now stopped.
LA 3.1 on admit, repeat LA is 1
CHUY - resolved
Nonobstructive ureteral stents, UTI as above
S/p bilateral stent placement on 04/12 by urology as above
Mcgee was removed as patient was not tolerating it, he is voiding without it.
Outpatient follow-up for stone removal when medically stable
Continue IV fluids, continue Flomax
Trend creatinine, improved from 2.8��>2.5-->1.2-->0.9
Acute displaced left distal periprosthetic femur fracture
history of left total knee arthroplasty as well as left long cephalomedullary nail fixation for left hip fracture, does not ambulate at baseline, transfers from to
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
Femur x-ray now showing acute displaced fracture
Ortho consulted, they recommend transfer to tertiary care center for trauma orthopedist at [facility] who doesn't have OR availability until Thursday. Now that he is medically stable, d/w Dr. Berman he is not the specialist and he is not comfortable
accepting the pt over the weekend. Will need to call back Thursday [phone] to get pt accepted and transported.
Nonweightbearing left lower extremity in knee immobilizer
Oxycodone and morphine prn pain
DM 2
Uncontrolled in setting of sepsis
A1c 7.6%
Hold home glipizide, metformin, and Farxiga while inpatient
Lantus 19 units daily, 7 units TID-meals, adjust as needed, SSI
Diarrhea
Multiple episodes at home, patient took loperamide, persists here
C. difficile negative, Campylobacter negative, Salmonella/Shigella pending although unlikely given time frame. Stool culture pending.
CT a/p with no colitis or diverticulitis or other concerning GI findings.
prn imodium
Essential Hypertension
No longer hypotensive. Resume home metoprolol. Stop IVF. Holding lisinopril until needed.
BLE edema
Patient notes this has been ongoing since WAD LUBRICATOR. Suspect chronic lymphedema/chronic venous stasis. Echo from 2022 reviewed, EF 56% with no RWMA, no valve disease, stage I diastolic dysfunction. Does not appear to be having S/S of CHF at this time.
BNP is not elevated. s/p IV fluids for sepsis. Discussed with RN, will start with compression hose on right leg only. Consider diuresis with IV lasix.
CAD s/p stent
-Continue ASA/atorvastatin, BB, hold ACEi as above
COPD, no acute exacerbation
Continue DuoNeb PRN
Obstructive Sleep Apnea
Continue CPAP
DVT proph: Hep SC
Anticipated Discharge: 24 - 48 hours
Subjective/Interval History
-
Date of Service: April 16, 2025
Feeling 'fair'. Pt again had diarrhea, notes he has a pet bird and also wondering if he has listeria.
Objective Data
-
Labs:
Laboratory Results
04/16/25
05:47
WBC 7.7
Hgb 9.3 L
Hct 28.9 L
Plt Count 243
Sodium 137
Potassium 4.0
Chloride 107
Carbon Dioxide 26
BUN 18
Creatinine 0.9
Glucose 182 H
Calcium 8.4
Total Bilirubin 1.0
AST 18
ALT 23
Alkaline Phosphatase 70
Vital Signs:
Vital Signs
Temp Pulse Resp BP Pulse Ox
98.3 F 72 20 103/53 97
04/15/25 23:10 04/15/25 23:10 04/15/25 23:10 04/15/25 23:10 04/15/25 23:10
I&O
04/15/25 04/16/25 04/17/25
06:59 06:59 06:59
Intake Total 3195 / 3195 50 / 50
Output Total 2200 / 2200 850 / 850
Balance 995 / 995 -800 / -800
Review of Systems
-
History Source: Patient
All other systems: Reviewed and negative
Physical Exam
-
General: No Apparent Distress
HEENT: Moist Mucous Membranes, Anicteric and PERRLA
Respiratory: Clear to Auscultation; Negative Wheezes, Rales or Rhonchi
Cardiac: Regular Rhythm and S1/S2; Negative Murmur, Rub or Gallop
GI: Soft, Nontender, Nondistended ('my stomach is always this firm') and Normal Bowel Sounds
Musculoskeletal: Edema, Right Lower Extrem, Edema, Left Lower Extrem and Other (Left leg in brace, pain with movement)
Skin: Warm and Dry; Negative Rash, Ulcers or Lesions
Neuro: Awake and AO x 3
Hematologic / Lymphatic: No Lymphadenopathy
Psych: Calm
Data Reviewed
-
Diagnostic Radiology: Report Reviewed by me, Discussed with Physician and Discussed with Patient
CT Scan: Report Reviewed by me, Discussed with Physician and Discussed with Patient
Labs: Labs Reviewed by me and Discussed with Patient
[2025-04-16 08:06] LABS: Glucose - Point of Care 167 mg/dl (70-99)
[2025-04-16 08:09] LABS: Nucleated Red Blood Cells % 0.5 % (-)
[2025-04-16] MEDS: LOPRESSOR 50 MG PO ×2 (08:27→20:15)
[2025-04-16] MEDS: NOVOLOG FLEXPEN-MODERATE RESISTANCE 1 UNITS SC (08:27)
[2025-04-16] MEDS: FLOMAX 0.4 MG PO (08:27)
[2025-04-16] MEDS: ASPIR LOW (ENTERIC COATED) 81 MG PO (08:27)
[2025-04-16] MEDS: TYLENOL 1000 MG PO ×3 (08:27→21:26)
[2025-04-16] MEDS: HEPARIN 5000 UNITS SC ×2 (08:27→20:15)
[2025-04-16] MEDS: NOVOLOG FLEXPEN 7 UNITS SC ×3 (08:28→17:46)
[2025-04-16] MEDS: LANTUS 0.19 UNITS SC (08:28)
[2025-04-16] MEDS: NOVOLOG FLEXPEN SC (08:35)
[2025-04-16] MEDS: ROCEPHIN 1000 MG IV (10:17)
[2025-04-16] MEDS: STERILE WATER FOR INJECTION 10 ML IV (10:17)
[2025-04-16] MEDS: IMODIUM 2 MG PO (10:17)
[2025-04-16 11:48] LABS: Glucose - Point of Care 214 mg/dl (70-99)
[2025-04-16 11:55] VITALS: BP 130/68
[2025-04-16] MEDS: NOVOLOG FLEXPEN-MODERATE RESISTANCE 3 UNITS SC (12:04)
[2025-04-16 15:00] VITALS: BP 117/69
[2025-04-16] MEDS: LIPITOR 80 MG PO (16:35)
[2025-04-16 17:29] LABS: Glucose - Point of Care 253 mg/dl (70-99)
[2025-04-16] MEDS: NOVOLOG FLEXPEN-MODERATE RESISTANCE 5 UNITS SC (17:46)
[2025-04-16] MEDS: SINGULAIR 10 MG PO (21:26)
[2025-04-16 21:49] LABS: Glucose - Point of Care 281 mg/dl (70-99)
[2025-04-16 23:00] VITALS: BP 116/54
--- NOTE | 2025-04-17 02:17 | PTCARENOTE ---
Patient refused to use bed bryan for bowel movement. Unable to obtain stool sample.
[2025-04-17 06:00] VITALS: BMI 36.5
[2025-04-17 07:00] VITALS: BP 130/68
[2025-04-17 07:30] LABS: ALT (SGPT) 23 U/L (0-50); AST (SGOT) 19 U/L (17-59); Albumin 3.1 g/dl (3.5-5.0); Alkaline Phosphatase 79 U/L (38-126); Blood Urea Nitrogen 13 mg/dl (9-20); Calcium 8.8 mg/dl (8.4-10.2); Carbon Dioxide 28 mmol/L (22-30); Chloride 103 mmol/L (98-107); Estimated Creatinine Clearance 81 ml/min; Glucose 210 mg/dl (70-99); Potassium 4.0 mmol/L (3.5-5.1); Sodium 133 mmol/L (135-145); Total Protein 5.9 g/dl (6.3-8.2); eGFR > 60.00
[2025-04-17 07:44] LABS: Glucose - Point of Care 213 mg/dl (70-99)
[2025-04-17] MEDS: NOVOLOG FLEXPEN-MODERATE RESISTANCE 3 UNITS SC ×2 (08:04→12:27)
[2025-04-17] MEDS: NOVOLOG FLEXPEN 7 UNITS SC ×3 (08:05→17:51)
[2025-04-17] MEDS: TYLENOL 1000 MG PO ×2 (08:05→16:50)
[2025-04-17] MEDS: ASPIR LOW (ENTERIC COATED) 81 MG PO (08:05)
[2025-04-17] MEDS: FLOMAX 0.4 MG PO (08:05)
[2025-04-17] MEDS: LANTUS 0.19 UNITS SC (08:06)
[2025-04-17] MEDS: HEPARIN 5000 UNITS SC ×2 (08:06→19:54)
[2025-04-17] MEDS: LOPRESSOR 50 MG PO ×2 (08:06→19:54)
[2025-04-17 08:12] LABS: Hematocrit 30.3 % (39.0-52.0); Hemoglobin 9.6 g/dL (13.0-18.0); Mean Corp Hgb Conc. 31.7 g/dL (33.0-37.0); Mean Corpuscular Volume 83.9 fL (80.0-94.0); Platelet Count 270 10^3/uL (130-400); Red Cell Dist. Width 14.6 % (11.5-14.5)
[2025-04-17] MEDS: MORPHINE SULFATE 4 MG IV ×3 (09:04→20:42)
[2025-04-17 09:26] VITALS: BMI 36.5
[2025-04-17] MEDS: ROCEPHIN 1000 MG IV (10:29)
[2025-04-17] MEDS: STERILE WATER FOR INJECTION 10 ML IV (10:29)
[2025-04-17 10:40] LABS: Nucleated Red Blood Cells % 0.5 % (-)
--- NOTE | 2025-04-17 11:33 | W.PN.HOSP.TC ---
Today's Communication/Plan
-
working to transfer to [facility] for Fx mgmt
Assessment / Plan
Assessment / Plan
85yo M with PMHx of CAD, MEHDI, HLD, DM, COPD, chronic ambulatory dysfunction came after the fall in bathroom on 04/10/25, he called EMS who assisted him to get up to his power chir. He declined hospitalization at that time. However he continued with
8-10 times a day diarrhea after that and developed urinary frequency. So on he presented to ED of due to continued pain in L leg and diarrhea with weakness, found UTI, L leg periprosthetic Fx, also found 6 mm stone in distal left ureter 5 mm
from the left UVJ. There is a 10 mm stone in the distal right ureter 1 cm from the right UVJ. S/P Cystoscopy, bilateral ureteral stent placement on 04/12/25. As per Ortho - recommendation for transfer to tertiary care for trauma orthopedist
evaluation for further management.
A/P:
#Sepsis on admission 2/2 UTI with obstrucive uropathy
Improved on Abx as per Ucx and ID
Urology: s/p JJ stents, plan to review in 2 weeks
#Acute displaced L distal periprosthetic Fx
Ortho eval: tertiary care transfer
Immobilizer andf pain mgmt
Ortho in [facility] asking for P2P with ortho - provided info and await further mgmt/acceptance
#DIarrhea
no colitis on CT
C.diff neg
Stool Cx pending
#Anemia, acute blood loss
2/2 Fx
follow CBC
#DM type 2 with neuropahty
DM diet, Accuhecks, Insulin SS
hold oral antiglycemics
#Essential HTN
#CAD s/p PCI
#COPD not in exacerbation
#MEHDI
cont CPAP
cont home meds
DVT ppx hep
Full code
I have spent at least 60min reviewing chart, test results, communication with consultants and providing direct patient care
Anticipated Discharge: > 48 hours
Subjective/Interval History
-
Date of Service: April 17, 2025
Objective Data
-
Labs:
Laboratory Results
04/17/25
06:35
WBC 8.6
Hgb 9.6 L
Hct 30.3 L
Plt Count 270
Sodium 133 L
Potassium 4.0
Chloride 103
Carbon Dioxide 28
BUN 13
Creatinine 0.9
Glucose 210 H
Calcium 8.8
Total Bilirubin 1.2
AST 19
ALT 23
Alkaline Phosphatase 79
Vital Signs:
Vital Signs
Temp Pulse Resp BP Pulse Ox
98.4 F 84 18 130/68 99
04/17/25 07:00 04/17/25 08:06 04/17/25 07:00 04/17/25 08:06 04/17/25 07:00
I&O
04/16/25 04/17/25 04/18/25
06:59 06:59 06:59
Intake Total 50 / 50 720 / 720
Output Total 850 / 850 1300 / 1300
Balance -800 / -800 -580 / -580
Review of Systems
-
History Source: Patient
All other systems: Reviewed and negative
Physical Exam
-
General: No Apparent Distress
HEENT: Normocephalic
Respiratory: Clear to Auscultation
Cardiac: Regular Rhythm
GI: Soft, Nontender and Nondistended
Musculoskeletal: No Clubbing, No Cyanosis and No Edema
Neuro: Awake, Alert, Oriented and AO x 3
Psych: Calm
[2025-04-17 11:47] LABS: Glucose - Point of Care 232 mg/dl (70-99)
[2025-04-17] MEDS: VISBIOME 2 CAP PO (12:29)
--- NOTE | 2025-04-17 13:54 | PN.CDI ---
CDI
- -
CDI:
Physician Documentation Request
Admit Date: 04/12/25 21:36
Dear Doctor,
Patient admitted for fracture.
04/14 Wound Care Note: 'Patient admitted with: Coccyx stage 2 vs DTI, sacral/buttocks stage 1 pressure injury...R lateral ankle with small red/faint purple ecchymotic area suspect stage 1 vs DTI.
Patient developed a deep dermal stage 2 L posterior upper thigh pressure injury from his L knee immobilizer'
Physician documentation of the type and location of wounds is required for compliant documentation. Based on the above clinical findings and your assessment, please provide the following in your progress note:
1. Location of the ulcer/wound, including laterality.
2. Type (etiology) of ulcer/wound:
- Diabetic ulcer
- Arterial (ischemic) ulcer
- Traumatic wound
- Venous stasis ulcer
- Pressure (decubitus) ulcer
- Non-healing surgical wound
- Other
- Unable to determine
3. For a non-pressure ulcer, please indicate the depth/severity:
- Limited to the breakdown of skin
- With fat layer exposed
- With necrosis of muscle
- With necrosis of bone
- Other
- Unable to determine
4. If a pressure ulcer, please also include the stage* of the ulcer:
- Stage 1 - Skin intact, non-blanchable redness
- Stage 2 - Partial thickness loss of dermis, includes intact or open blister
- Stage 3 - Full thickness tissue not including bone, tendon or muscle
- Stage 4 - Full thickness tissue loss, including exposed bone, tendon or muscle
- Unstageable - Full thickness loss in which the base of the ulcer is covered by slough (yellow, fuller, abrams, green or brown) and/or eschar (fuller, brown or black) in the wound bed.
- Unable to determine
Use of terms such as suspected, likely, concern for, or probable (associated with a specific diagnosis that is being evaluated, monitored, or treated as if it exists) are acceptable and can be coded in the inpatient setting, when documented at the
time of discharge.
Thank you,
Laine Balderrama RN, BSN
CDI Specialist
Available via [employer] text
Please use your independent medical judgment in providing your response.
*Source: National Pressure Ulcer Advisory Panel (NPUAP)
--- NOTE | 2025-04-17 14:23 | CM ---
Still awaiting discharge to [facility] for fracture management. MD needs to call transfer center for doc to doc report for acceptance.
--- NOTE | 2025-04-17 14:34 | WOUNDNOTE ---
L THIGH (UPPER POSTERIOR MEDIAL)
--- NOTE | 2025-04-17 14:36 | WOUNDNOTE ---
SACRAL/COCCYX/PERIANAL
--- NOTE | 2025-04-17 14:36 | WOUNDNOTE ---
SACRAL/COCCYX/PERIANAL
--- NOTE | 2025-04-17 14:40 | WOUNDNOTE ---
[facility] RN Note: Patient incontinent of brown mucous. Perianal ulcers less moist. Coccyx ulcer pink/scant yellow fibrin stage 2 pressure injury. L posterior thigh stage 2 pressure injury healing. Patient has 22 inch knee immobilizer in use. L Achilles
skin intact. Skin on heels intact, blanchable mild red. R lateral ankle small faint purple area same stage 1 pressure injury patient stated occurred at home after fall. Mariela care given. Underpad changed. Sacral shaped silicone border foam changed on
sacrum. Calazime to perianal skin/ulcers. Silicone border foam changed on L posterior thigh and R lateral ankle. Protective silicone border foam changed R Achilles/lateral ankle with ABD pad on top under LLE immobilizer. ABD pad applied at posterior
top of LLE immobilizer. Heel foam dressings changed. Patient turned to L semi side lying position with help from SILVIA Rust. RN educator Denice helped with turning during underpad change and L posterior thigh dressing change. L heel off bed with air
chair cushion. R heel off bed with pillow. Patient for transfer to [place] when bed available. Will follow as needed. Patient reports a good appetite.
[2025-04-17 15:00] VITALS: BP 129/57
[2025-04-17 16:34] LABS: Glucose - Point of Care 259 mg/dl (70-99)
--- NOTE | 2025-04-17 17:38 | W.PN.UPDATE ---
Update Note
Progress Note Update
Instructions on discharge packet prior to transfer:
You had stents placed in the ureters to drain urine around kidney stones
The stents and stones cannot stay in place and must be removed
Follow up with urology (Dr. Lowe) to discuss next steps for stone removal
This can wait several weeks as you deal with the fracture repair and recovery
Call the urology office at [phone] once you have an estimate of when you can be seen in the office
Sacral/coccyx-clean with saline or soap and water, sacral shaped silicone border foam, change q 3 days and prn loosened dressing.
Perianal ulcers, L lower gluteal crease-barrier ointment TID.
R lateral ankle ulcer-clean with saline, silicone border foam, change q 3 days and prn loosened dressing.
L posterior upper thigh ulcer-clean with saline or Vashe wound cleanser, silicone border foam with ABD on top for more padding, change daily.
L Achilles/lateral ankle-silicone border foam with ABD pad on top for protection under knee immobilizer, change q 3 days and prn loosened dressing.
Air mattress
Elevate heels off bed with pillow/s
Pressure redistributing chair cushion (i.e. Air, Roho)
Turning schedule
L leg immobilizer-open immobilizer daily and prn skin check/care (keep knee straight while lifting his leg up to assess/treat skin)
NWB LLE
[2025-04-17] MEDS: LIPITOR 80 MG PO (17:50)
[2025-04-17] MEDS: NOVOLOG FLEXPEN-MODERATE RESISTANCE 5 UNITS SC (17:51)
--- NOTE | 2025-04-17 19:40 | PTCARENOTE ---
report called into nurse [facility]
[2025-04-17] MEDS: ROXICODONE 5 MG PO (19:47)
[2025-04-17] MEDS: SINGULAIR 10 MG PO (19:48)
[2025-04-17 20:40] LABS: Glucose - Point of Care 323 mg/dl (70-99)
[2025-04-17 20:50] VITALS: BP 129/68
--- NOTE | 2025-04-17 21:05 | PTCARENOTE ---
pt leaving facility aprox 20:50 all documentation reviewed, cpap and belongings with pt, vs WNL report called in to katarzyna.
--- NOTE | 2025-04-18 07:11 | W.DCSUMMARY ---
Discharge Summary
Discharge Data
Date of Admission: 04/12/25
Date of Discharge: 04/17/25
-
Pending Results: No
Hospital Course
85yo M with PMHx of CAD, MEHDI, HLD, DM, COPD, chronic ambulatory dysfunction came after the fall in bathroom on 04/10/25, he called EMS who assisted him to get up to his power chir. He declined hospitalization at that time. However he continued with
8-10 times a day diarrhea after that and developed urinary frequency. So on he presented to ED of due to continued pain in L leg and diarrhea with weakness, found UTI, L leg periprosthetic Fx, also found 6 mm stone in distal left ureter 5 mm
from the left UVJ. There is a 10 mm stone in the distal right ureter 1 cm from the right UVJ. S/P Cystoscopy, bilateral ureteral stent placement on 04/12/25. As per Ortho - recommendation for transfer to tertiary care for trauma orthopedist
evaluation for further management. Accepted by Dr.Samir Green.
I have spent at least 60min reviewing chart, test results, communication with consultants and providing direct patient care
Patient was managed for:
#Sepsis on admission 2/2 UTI with obstructive uropathy
#Acute displaced L distal periprosthetic Fx
#DIarrhea
#Anemia, acute blood loss
#DM type 2 with neuropathy
#Essential HTN
#CAD s/p PCI
#COPD not in exacerbation
#MEHDI
#Coccyx stage 2 vs DTI, sacral/buttocks stage 1 pressure injury, present on admission
#R lateral ankle with small red/faint purple ecchymotic area suspect stage 1 vs DTI present on admission
#dermal stage 2 L posterior upper thigh pressure injury from his L knee immobilizer new
Discharge Plan
-
Patient Disposition: Acute Care Hospital
Discharge Orders:
Discharge Patient (As Directed); Ordered 04/17/25
Ordered By: Marisela Dash
Discharge Date and Time
Discharge Date/Time: 04/17/25 20:51
Print Language: CHINESE
--- NOTE | 2025-04-18 08:56 | CM ---
Transferred to [facility] for specialized acute care services. [place] transport.
== END 2025-04-17 20:51 | disposition short-term general hospital (02) | DRG 987 ==
LOC: 2 SOUTH 21:36
PROVIDERS: Internal Medicine; Physician Assistant; Physician Assistant Medical; ADMITTING PHYSICIAN Hospitalist; ATTENDING PHYSICIAN Internal Medicine; CONSULT PHYSICIAN Orthopaedic Surgery; CONSULT PHYSICIAN Urology; EMERGENCY PHYSICIAN Student in an Organized Health Care Education/Training Program; FAMILY PHYSICIAN Family Medicine
PROC: 0T788DZ Dilation of Bilateral Ureters with Intraluminal Device, Via Natural or Artificial Opening Endoscopic (ICD-10-PCS; 2025-04-12)
DX: M97.02XA Periprosthetic fracture around internal prosthetic left hip joint, initial encounter (principal); A41.9 Sepsis, unspecified organism; D62 Acute posthemorrhagic anemia; N13.8 Other obstructive and reflux uropathy; N20.2 Calculus of kidney with calculus of ureter; N17.9 Acute kidney failure, unspecified; E87.1 Hypo-osmolality and hyponatremia; E87.20 Acidosis, unspecified; N40.1 Benign prostatic hyperplasia with lower urinary tract symptoms; N30.91 Cystitis, unspecified with hematuria; E11.40 Type 2 diabetes mellitus with diabetic neuropathy, unspecified; I10 Essential (primary) hypertension; I25.10 Atherosclerotic heart disease of native coronary artery without angina pectoris; Z95.5 Presence of coronary angioplasty implant and graft; J44.9 Chronic obstructive pulmonary disease, unspecified; G47.33 Obstructive sleep apnea (adult) (pediatric); E78.00 Pure hypercholesterolemia, unspecified; W19.XXXA Unspecified fall, initial encounter; Z99.3 Dependence on wheelchair; E66.09 Other obesity due to excess calories; Z68.36 Body mass index [BMI] 36.0-36.9, adult; Z96.652 Presence of left artificial knee joint; Z79.82 Long term (current) use of aspirin; Z79.84 Long term (current) use of oral hypoglycemic drugs; Z79.899 Other long term (current) drug therapy; E86.1 Hypovolemia; L89.152 Pressure ulcer of sacral region, stage 2; L89.151 Pressure ulcer of sacral region, stage 1
CPT/HCPCS: 71046; 72170; 73552; 73560; 74018; 74176; 76000; 80048; 80053; 81003; 81015; 82550; 82962; 83036; 83605; 83735; 83880; 83935; 84300; 84484; 85025; 85027; 87040; 87045; 87046; 87077; 87086; 87186; 87324; 87427; 87449; 93005; 94660; 96361; 96374; 96375; 99291